=== PATIENT | female | born 1960 | race Caucasian/White ===

== ENCOUNTER 2019-12-28 11:10 | Outpatient (CLI) | payer OTHER, SELFPAY ==
[2019-12-28 11:51] LABS: Add Urine Microscopic? YES; Appearance Urine Cloudy (Clear); Bacteria Urine 2+ /hpf; Bilirubin Urine Negative (Negative); Blood Urine 2+ (Negative); Color Urine Yellow (Yellow); Glucose Urine UA Negative (Negative); Ketones Urine Negative (Negative); Leukocyte Esterase Ur 3+ LEU/UL (NEGATIVE); Mucus Urine Heavy /lpf; Nitrate Urine Positive (Negative); Protein Urine 2+ mg/dL (Negative); RBC Urine >75 /hpf (0-2); Specific Grav Ur 1.018 (1.001-1.035); Urobilinogen Urine Negative mg/dL (<2.0); WBC Clumps Urine Present /HPF; WBC Urine >75 /hpf (0-3)
== END 2019-12-28 11:11 | disposition home or self-care (01) ==
PROVIDERS: PCP Internal Medicine; Visit Provider Internal Medicine Hematology & Oncology
DX: N39.0 Urinary tract infection, site not specified (principal)
CPT/HCPCS: 81001; 87086; 87186

== ENCOUNTER 2020-02-09 13:28 | Outpatient (CLI) | payer OTHER, SELFPAY ==
--- NOTE | ~2020-02-09 | CT_ITS ---
EXAMINATION: CT abdomen pelvis wo con DATE: 02/09/2020 13:52 INDICATION: Microscopic hematuria. Recurrent urinary tract infections. Posterior right abdominal pain . History of endometrial carcinoma; status post hysterectomy in 2010 History of colon cancer, treated with surgery and radiation treatment and chemotherapy. TECHNIQUE: Computed tomography (CT) of the abdomen and pelvis was performed without intravenous contr ast. Automated exposure control and iterative reconstruction technique were employed. Exam dose: 219 .89 mGy-cm total exam DLP. COMPARISON: 06/05/2012 CT abdomen pelvis with IV contrast material FINDINGS: Mild discoid atelectasis or more likely scarring in the left lower lobe. The lung bases are clear of infiltrate or consolidation. Normal heart size. No pericardial or pleural effusion. Hypoattenuating approximately 1.8 x 2.6 cm right hepatic lesion previously measured 10 x 14 mm on 05/25. Density measurement is approximately 13 Hounsfield units. Consider further evaluation with in travenous contrast material CT abdomen examination or MRI examination. No other hepatic space-occupying mass lesion is detected. No bile duct dilatation. The gallbladder is present. No pericholecystic fluid or stranding. No pancreatic mass lesion, calcification or ductal dilatation is evident. Normal splenic size. Normal morphology of the adrenal glands. No renal mass lesion is evident on this limited noncontrast examination. No urinary tract calculus or hydroureteronephrosis. The urinary bladder is moderately distended, appears unremarkable. Normal caliber of the abdominal aorta. Surgical clips are noted in the periaortic and pericaval areas and in the bilateral pelvis. Status post hysterectomy. There is a wide lower ventral anterior abdominal wall hernia containing non strangulated nonobstructe d small bowel. Suture line is noted in the rectosigmoid area. No bowel obstruction, bowel wall thickening or pneumatosis. No intraperitoneal free air. Prominent degenerative disc disease at L5-S1. IMPRESSION: Approximately 1.8 x 2.6 cm right hepatic lesion, increased in size since 06/05/2012; cons ider further evaluation with CT examination with IV contrast material or preferably MRI examination Status post hysterectomy Postoperative change of the rectosigmoid area Lower midline anterior ventral abdominal wall with herniated small bowel, without strangulation or ob struction Reviewed, dictated and finalized at [facility]. Reviewed, dictated and finalized at [facility]. IMPRESSION: Approximately 1.8 x 2.6 cm right hepatic lesion, increased in size since 06/05/2012; consider further evaluation with CT examination with IV contr ast material or preferably MRI examination Status post hysterectomy Postoperative change of the rectosigmoid area Lower midline anterior ventral abdominal wall with herniated small bowel, witho ut strangulation or obstruction
== END 2020-02-09 13:29 | disposition home or self-care (01) ==
LOC: CHSIMG 13:31
PROVIDERS: PCP Internal Medicine; Visit Provider Nurse Practitioner Family
DX: R31.9 Hematuria, unspecified (principal); N20.0 Calculus of kidney; N39.0 Urinary tract infection, site not specified
CPT/HCPCS: 74176

== ENCOUNTER 2020-02-17 07:51 | Outpatient (CLI) | payer OTHER, SELFPAY ==
[2020-02-17 08:31] LABS: Hematocrit 41.3 % (37.0-47.0); Hemoglobin 13.6 g/dL (12.0-15.0); Mean Corpuscular HGB Conc 32.9 g/dl (32-36); Mean Platelet Volume 10.2 fl (7.4-10.4); Platelet Count Result 292 k/mm3 (150-375); Red Blood Count 4.54 M/mm3 (4.2-5.4); Red Cell Distribution Width 12.9 % (11.5-14.5); White Blood Count 5.4 K/mm3 (4.5-10.0)
[2020-02-17 10:59] LABS: Add Urine Microscopic? NO; Appearance Urine Clear (Clear); Bilirubin Urine Negative (Negative); Blood Urine Negative (Negative); Color Urine Yellow (Yellow); Glucose Urine UA Negative (Negative); Ketones Urine Negative (Negative); Leukocyte Esterase Ur Negative LEU/UL (Negative); Nitrate Urine Negative (Negative); Protein Urine Negative (Negative); Specific Grav Ur 1.016 (1.001-1.035); Urobilinogen Urine Negative mg/dL (<2.0)
[2020-02-17 11:12] LABS: LDL Cholesterol Direct 98 mg/dL
[2020-02-17 11:18] LABS: Vitamin D 25 Hydroxy 41.4 ng/mL
[2020-02-17 11:22] LABS: Alanine Aminotransferase 20 U/L (4-35); Albumin Level 4.6 g/dL (3.5-5.1); Alkaline Phosphatase 73 U/L (38-126); Aspartate Amino Transferase 28 U/L (14-36); Bilirubin,Total 0.5 mg/dL (0.2-1.3); Blood Urea Nitrogen 20 mg/dL (7-17); Calcium 9.7 mg/dL (8.4-10.2); Carbon Dioxide 30 mmol/L (22-30); Chloride 103 mmol/L (98-107); Cholesterol 234 mg/dL (0-200); Estimated Glomerular Filt Rate > 60; Glucose 104 mg/dL (65-105); Potassium 4.1 mmol/L (3.4-5.0); Sodium 140 mmol/L (137-145); Triglycerides 75 mg/dL (<150)
[2020-02-17 11:27] LABS: HDL Direct 120 mg/dL
[2020-02-17 11:32] LABS: Carcinoembryonic Antigen 2.9 ng/mL (0.0-3.0)
== END 2020-02-17 07:52 | disposition home or self-care (01) ==
LOC: ANHLAB 07:52
PROVIDERS: PCP Internal Medicine; Visit Provider Internal Medicine Hematology & Oncology
DX: I10 Essential (primary) hypertension (principal); Z85.44 Personal history of malignant neoplasm of other female genital organs; Z85.038 Personal history of other malignant neoplasm of large intestine; N30.00 Acute cystitis without hematuria
CPT/HCPCS: 36415; 80053; 80061; 81003; 82306; 82378; 85027

== ENCOUNTER 2020-04-07 17:55 | Outpatient (CLI) | payer OTHER, SELFPAY ==
[2020-04-07 18:36] LABS: Appearance Urine Clear (Clear); Color Urine Yellow (Yellow); pH Urine 5.5 (5.0-8.0)
[2020-04-07 18:37] LABS: Add Urine Microscopic? YES; Bilirubin Urine Negative (Negative); Blood Urine Negative (Negative); Glucose Urine UA Negative (Negative); Ketones Urine Trace (Negative); Leukocyte Esterase Ur Negative (Negative); Nitrate Urine Negative (Negative); Protein Urine Negative (Negative); Specific Grav Ur >= 1.030 (1.010-1.020); Urobilinogen Urine 0.2 mg/dL (0.2-1.0)
[2020-04-07 18:38] LABS: Bacteria Urine Trace /hpf; RBC Urine 0-2 /hpf (0-2); Squamous Epithelial Cell Urine Rare /hpf (Few)
== END 2020-04-07 17:56 | disposition home or self-care (01) ==
LOC: CHSLAB 17:57
PROVIDERS: PCP Internal Medicine; Visit Provider Internal Medicine
DX: R19.7 Diarrhea, unspecified (principal); N39.0 Urinary tract infection, site not specified
CPT/HCPCS: 81001; 87045; 87046; 87086; 87088; 87177; 87209; 87427

== ENCOUNTER 2020-04-09 11:27 | Outpatient (CLI) | payer OTHER, SELFPAY | END 2020-04-09 11:28 | disposition home or self-care (01) | LOC: CHSLAB 11:30 | PROVIDERS: PCP Internal Medicine; Visit Provider Internal Medicine | DX: R19.7 Diarrhea, unspecified (principal); N39.0 Urinary tract infection, site not specified | CPT/HCPCS: 87324 ==

== ENCOUNTER 2020-06-20 14:38 | Outpatient (CLI) | payer OTHER, SELFPAY ==
--- NOTE | ~2020-06-20 | MR_ITS ---
EXAMINATION: MR abdomen wo/w con DATE: 06/20/2020 16:11 INDICATION: Liver mass. TECHNIQUE: Magnetic resonance imaging (MRI) of the abdomen was performed without and with 14 mL Multi Kayleen intravenous contrast. Sequences included coronal T2-weighted FS FSE, coronal and axial FS FIEST A, axial T2-weighted FSE, coronal LAVA-flex, axial STIR FSE, axial DWI, axial dual-echo T1-weighted F SPGR, and axial LAVA. Postcontrast sequences included coronal LAVA-flex and a time course of axial LA VA. COMPARISON: Abdomen MRI 03/28/2019, CT abdomen and pelvis 02/09/2020 FINDINGS: There is a 2.5 cm cyst in right hepatic lobe. The gallbladder, spleen, pancreas, adrenal glands, and left kidney are normal. There is mild atrophy of right kidney. There are no dilated loops of bowel. T here are no pathologically enlarged lymph nodes. There is no free intraperitoneal fluid. IMPRESSION: 1. Benign cyst in right hepatic lobe. Reviewed, dictated and finalized at location [facility].
[2020-06-20 15:17] LABS: Estimated Glomerular Filt Rate > 60
== END 2020-06-20 14:39 | disposition home or self-care (01) ==
PROVIDERS: PCP Internal Medicine; Visit Provider Internal Medicine
DX: K76.89 Other specified diseases of liver (principal)
CPT/HCPCS: 36415; 74183; A9577

== ENCOUNTER 2020-12-12 13:44 | Outpatient (CLI) | payer OTHER, SELFPAY ==
--- NOTE | ~2020-12-12 | XR_ITS ---
EXAMINATION: XR abdomen obstructive series DATE: 12/12/2020 14:16 INDICATION: Abdominal pain and diarrhea TECHNIQUE: Upright and supine views of the abdomen were obtained. COMPARISON: CT, 02/09/2020 FINDINGS: There are no dilated loops of bowel. No free intraperitoneal gas is identified. Bowel surgi sulma changes are noted in the rectum. There are also changes of pelvic and retroperitoneal lymph node dissection. A large volume of colonic stool is present. The visualized lung bases are clear. There is mild osteoarthritis of the hips. IMPRESSION: 1. Constipation. Reviewed, dictated and finalized at location [facility]. ATOR ERECTOR IMPRESSION: 1. Constipation.
[2020-12-12 14:29] LABS: Basophils Absolute Auto 0.04 K/mm3 (0.00-0.10); Basophils Percent Auto 0.8 % (0.0-1.0); Eosinophils Absolute Auto 0.13 K/mm3 (0.02-0.50); Eosinophils Percent Auto 2.6 % (1.0-6.0); Hematocrit 38.7 % (35.0-49.0); Hemoglobin 12.8 g/dL (12.0-15.0); Immature Granulocyte Absolute 0.01 K/mm3 (0.00-0.00); Immature Granulocyte Percent A 0.2 % (0.0-0.0); Lymphocytes Absolute Auto 1.35 K/mm3 (1.10-4.50); Lymphocytes Percent Auto 27.3 % (18.0-42.0); Mean Corpuscular HGB Conc 33.1 g/dL (32.0-36.0); Mean Corpuscular Hemoglobin 29.7 pg (27.0-31.0); Mean Corpuscular Volume 89.8 fL (78.0-102.0); Mean Platelet Volume 10.4 fl (9.2-11.8); Monocytes Percent Auto 8.1 % (2.0-11.0); Platelet Count Result 228 K/mm3 (150-420); Red Blood Count 4.31 M/mm3 (4.20-5.40); Red Cell Distribution Width 12.2 % (11.6-14.4)
[2020-12-12 14:48] LABS: SARS-CoV-2 Ag Negative (Negative)
[2020-12-12 15:30] LABS: Alanine Aminotransferase 7 U/L (14-59); Albumin Level 3.9 g/dL (3.4-5.0); Alkaline Phosphatase 73 U/L (46-116); Amylase 43 U/L (25-115); Anion Gap 10 mmol/L (8-16); Aspartate Amino Transferase 14 U/L (15-37); Bilirubin,Total 0.5 mg/dL (0.00-1.00); Blood Urea Nitrogen 16 mg/dL (7-18); Calcium 8.7 mg/dL (8.5-10.1); Carbon Dioxide 30 mmol/L (21-32); Chloride 102 mmol/L (98-108); Estimated Glomerular Filt Rate > 60; Free T4 Free Thyroxine 1.18 ng/dL (0.76-1.46); Glucose 108 mg/dL (70-99); Lipase 75 U/L (73-393); Osmolality Calculated 296 mOsm/kg (285-295); Potassium 3.8 mmol/L (3.5-5.1); Sodium 142 mmol/L (136-145); Thyroid Stimulating Hormone 1.24 uIU/mL (0.36-3.74); Total Protein 6.9 g/dL (6.4-8.2)
[2020-12-13 18:38] LABS: SARS-CoV-2 RNA PCR Negative
== END 2020-12-12 13:45 | disposition home or self-care (01) ==
PROVIDERS: PCP Internal Medicine; Visit Provider Nurse Practitioner Family
DX: R10.9 Unspecified abdominal pain (principal); R19.7 Diarrhea, unspecified; Z20.822 Contact with and (suspected) exposure to COVID-19
CPT/HCPCS: 36415; 74019; 80053; 82150; 83690; 84439; 84443; 85025; 87426; C9803; U0003; U0005

== ENCOUNTER → 2021-03-03 00:41 | Outpatient (CLI) | payer OTHER, SELFPAY ==
[2021-03-03 19:49] LABS: SARS-CoV-2 RNA PCR Negative
== END ==
PROVIDERS: PCP Internal Medicine; Visit Provider Internal Medicine Gastroenterology
DX: Z01.812 Encounter for preprocedural laboratory examination (principal); Z20.822 Contact with and (suspected) exposure to COVID-19
CPT/HCPCS: C9803; U0003; U0005

== ENCOUNTER 2021-03-06 01:55 | Day surgery (SDC) | payer OTHER, SELFPAY ==
[2021-02-23 14:35] VITALS: BMI 26.6
[2021-03-06 09:58] VITALS: BP 137/75; PULSE 91; RESP 16; TEMP 36.6; O2SAT 100; BMI 26.0
[2021-03-06] MEDS: LACTATED RINGERS 1,000 ML 150 ML IV CONT (10:08)
--- NOTE | 2021-03-06 10:18 | WPDANESEPPF ---
Anes - Initial Pre Proc Eval Procedure: Operation Date: 03/06/21 11:15 Proposed Procedures p Esophagogastroduodenoscopy & Colonoscopy - Gianni Garcia MD Date/Time: 03/06/21 10:18 Surgeon: Gianni Garcia MD Pre Op Diagnosis: diarrhea Patient Data Age: 60 Gender: F Height: 5 ft 4 in Weight: 68.8 kg Last Vital Signs Temp 98 F 03/06/21 09:58 Pulse 91 03/06/21 09:58 Resp 16 03/06/21 09:58 BP 137/75 03/06/21 09:58 Pulse Ox 100 03/06/21 09:58 Allergies Allergy/AdvReac Type Severity Reaction Status Date / Time codeine Allergy Unknown Unknown Verified 12/28/20 13:38 Home Medications Medication Instructions Recorded Confirmed Type aspirin 81 mg tablet,delayed 81 mg PO DAILY 12/28/20 02/23/21 History release cholecalciferol (vitamin D3) 50 50 mcg PO DAILY 12/28/20 02/23/21 History mcg (2,000 unit) capsule lisinopril 10 0.5 tablet PO DAILY 12/28/20 02/23/21 History mg-hydrochlorothiazide 12.5 mg tablet eluxadoline 75 mg tablet 75 mg PO BID #60 tablet 02/23/21 02/23/21 Rx Patient hx anesthesia problems: none Family hx anesthesia problems: none PMFSH Past Medical History Medical History (Updated 12/28/20 @ 14:04 by Gianni Garcia MD) Colon cancer Defecation urgency Diarrhea Endometrial cancer Hypertension Irritable bowel syndrome with diarrhea Surgical History Surgical History History of colon resection Family History Family History (Updated 12/28/20 @ 13:42 by Angie Sibley CMA) Father Lung cancer Mother Carcinoma of colon Sibling Carcinoma of colon Sibling Carcinoma of colon Other Family history of lung disease Family history of malignant neoplasm Hypertension Social History Social History Smoking status: Never smoker Alcohol intake: current Drinks per week: 1 Substance use: never Substance use type: does not use Living arrangements: with family Spiritual care concerns: No Anes - Eval Final PreProcedure Day of Procedure 03/06/21 10:18 Patient weight: normal Heart: regular rate and rhythm Lungs: clear to auscultation Airway: Mallampati scale class II Neurological: alert and oriented Last oral intake: >/= 8 hours ASA classification: III Emergent: no Anesthetic plan: proceed Anesthesia type and monitoring: general GIVS and standard monitoring Informed Consent: The patient's anesthetic plan and its attendant risks and benefits were discussed with the patient/family/POA. Questions were solicited and answers provided to the satisfaction of the patient/family/POA.
--- NOTE | 2021-03-06 10:28 | PM.HPGS ---
History of Present Illness History of Present Illness Consent: Risks, benefits, and alternatives have been discussed and questions answered. Patient agrees to proceed with procedure. Chief complaint: diarrhea Narrative: Sixto Gallardo is a 60 year old female colorectal cancer in 1995 treated with surgery, XRT and chemo then in early 1999' had endometrial cancer treated with total hysterectomy, complicated with ureteral disruption and required another surgery. Her mother, brother and sister have been diagnosed with colon cancer and both siblings tested for Mckenzie syndrome (she has not been tested yet). She is here for egd and colonoscopy (also diarrhea since had colon treatment), last colonoscopy 3 years ago. Review of Systems Constitutional: Constitutional: Denies headache(s) and Denies weakness Eyes: Eyes: Denies blurry vision ENT: Reports Normal hearing present, Denies headache(s) and Denies neck pain Cardiovascular: Cardiovascular: Denies chest pain and Denies dyspnea Respiratory: Respiratory: Denies dyspnea Gastrointestinal: Gastrointestinal: Reports no additional gastrointestinal complaints Genitourinary: Genitourinary: Denies dysuria Musculoskeletal: Musculoskeletal: Denies neck pain Integumentary/Breasts: Skin/Breast: Denies dry skin Neurologic: Reports Normal hearing present, Denies headache(s) and Denies weakness Psychiatric: Psychiatric: Denies anxiety Endocrine: Endocrine: Denies change in body appearance Hematologic/Lymphatic: Hematologic/Lymphatic: Denies easy bleeding Allergic/Immunologic: Allergic/Immunologic: Denies urticaria PMFSH Past Medical History Medical History (Updated 03/06/21 @ 10:29 by Gianni Garcia MD) Colon cancer Defecation urgency Diarrhea Endometrial cancer Hypertension Irritable bowel syndrome with diarrhea Surgical History Surgical History History of colon resection Family History Family History (Updated 12/28/20 @ 13:42 by Angie Sibley CMA) Father Lung cancer Mother Carcinoma of colon Sibling Carcinoma of colon Sibling Carcinoma of colon Other Family history of lung disease Family history of malignant neoplasm Hypertension Social History Social History Smoking status: Never smoker Alcohol intake: current Drinks per week: 1 Substance use: never Substance use type: does not use Living arrangements: with family Spiritual care concerns: No Meds Home Medications and Allergies Home Medications Medication Instructions Recorded Confirmed Type aspirin 81 mg tablet,delayed 81 mg PO DAILY 12/28/20 02/23/21 History release cholecalciferol (vitamin D3) 50 50 mcg PO DAILY 12/28/20 02/23/21 History mcg (2,000 unit) capsule lisinopril 10 0.5 tablet PO DAILY 12/28/20 02/23/21 History mg-hydrochlorothiazide 12.5 mg tablet eluxadoline 75 mg tablet 75 mg PO BID #60 tablet 02/23/21 02/23/21 Rx Allergies Allergy/AdvReac Type Severity Reaction Status Date / Time codeine Allergy Unknown Unknown Verified 12/28/20 13:38 Vital Signs Vital Signs - 24 hr 03/06/21 09:58 Temperature 98 F Pulse Rate 91 Respiratory Rate 16 Blood Pressure 137/75 Pulse Oximetry 100 Exam Const: General: comfortable and no acute distress HENMT: General nose exam: Normal nares present Eyes: General: appearance normal, both eyes and all related structures Neck: Neck: no JVD Resp: Auscultation: clear to auscultation bilaterally Cardio: Rate: regular rate Rhythm: regular rhythm GI: Inspection: non-distended GI Palp: Yes Soft to palpation Skin: General skin exam: normal color Neuro: General: gait normal Speech: normal speech Extrem: General: normal to inspection Psych: Mental Status: mental status grossly normal Assessment and Plan Assessment and plan (1) Diarrhea: Code(s): R19.7 - Diarrhea, unspecified Status: A
[2021-03-06] MEDS: BENZOCAINE (*SP) 60 ML SPRAY CAN (HURRICAINE) 1 SPRAY MUCOUS MEM (10:30)
[2021-03-06 10:59] VITALS: BP 118/58; PULSE 66; RESP 16; O2SAT 100
[2021-03-06 11:09] VITALS: BP 124/71; PULSE 62; RESP 13; O2SAT 100
[2021-03-06 11:19] VITALS: BP 133/63; PULSE 62; RESP 21; O2SAT 100
== END 2021-03-06 11:29 | disposition home or self-care (01) ==
PROVIDERS: PCP Internal Medicine; Visit Provider Internal Medicine Gastroenterology
PROC: 0DJ08ZZ Inspection of Upper Intestinal Tract, Via Natural or Artificial Opening Endoscopic (ICD-10-PCS; CPT 43235; principal; 2021-03-06 11:15)
DX: K58.0 Irritable bowel syndrome with diarrhea (principal); Z85.038 Personal history of other malignant neoplasm of large intestine; Z80.0 Family history of malignant neoplasm of digestive organs; Z85.42 Personal history of malignant neoplasm of other parts of uterus; Z92.21 Personal history of antineoplastic chemotherapy; Z92.3 Personal history of irradiation; Z98.0 Intestinal bypass and anastomosis status; Z90.49 Acquired absence of other specified parts of digestive tract; K29.50 Unspecified chronic gastritis without bleeding; I10 Essential (primary) hypertension; Z79.82 Long term (current) use of aspirin
CPT/HCPCS: 45380; 43239; 88305; J2704; J7120

== ENCOUNTER 2021-04-29 19:57 | Emergency (ER) | payer OTHER, SELFPAY ==
--- NOTE | ~2021-04-29 | CT_ITS ---
EXAMINATION: CT abdomen pelvis w con EXAM DATE: 04/29/2021 22:03 INDICATION: Abdominal pain. Colon and endometrial cancer. TECHNIQUE: Spiral CT of the abdomen and pelvis was performed following intravenous injection of 100 m L Omnipaque 350. Axial, coronal and sagittal images of the abdomen and pelvis were reviewed. The do se-length product (DLP) for this examination was 343.26 mGy-cm. The exposure was tailored according to patient size (auto mA exposure control), and iterative reconstruction (ASIR) was used as additiona l dose reduction technique. Comparison is made to prior examination from 02/09/2020. FINDINGS: Right liver lobe cyst measuring 2.5 cm. The liver, spleen, adrenal glands and pancreas are otherwise unremarkable. Gallbladder is unremarkable. No biliary obstruction. Portal and splenic v eins are patent. Kidneys enhance symmetrically. There is no hydronephrosis. Multiple regions of rig ht renal cortical scarring, with bifurcated renal collecting system. The uterus is not identified an d has likely been surgically resected. The bladder is unremarkable. There is no retroperitoneal or pelvic lymphadenopathy. Retroperitoneal and pelvic surgical clips, pelvic and retroperitoneal lymph n ode dissection. The appendix is not positively visualized. There is no pericecal inflammatory change to suggest appe ndicitis. Rectosigmoid anastomosis site intact. There is supraumbilical wide mouth herniation with s ome small bowel loops protruding inside, and mild dilation of the small bowel loops without transitio n point. Ileus or low-grade small bowel obstruction. There is expected amount of colonic stool. No free intraperitoneal gas. The heart is normal in size. There are no pericardial or pleural effusi ons. The lung bases are unremarkable. There are no osteoblastic or osteolytic lesions identified. IMPRESSION: 1. Mildly dilated small bowel bowel protruding into [place] supraumbilical hernia, without transit ion point. Probably ileus or possibly low-grade partial small bowel obstruction. 2. Right renal cortical scarring.. 3. Surgical changes. Reviewed, dictated and finalized at location [facility]. IMPRESSION: 1. Mildly dilated small bowel bowel protruding into [place] supraumbilical h ernia, without transition point. Probably ileus or possibly low-grade partial s mall bowel obstruction. 2. Right renal cortical scarring.. 3. Surgical changes.
[2021-04-29 20:20] VITALS: BP 150/86; PULSE 95; RESP 18; TEMP 36.3; O2SAT 99
--- NOTE | 2021-04-29 20:31 | ECG_ITS ---
Measurements Intervals [place] Rate: 82 P: 68 WV: 135 QRS: 49 QRSD: 91 T: 9 QT: 369 QTc: 432 Interpretive Statements SINUS RHYTHM NONSPECIFIC ST & T-WAVE ABNORMALITY- ANT/INF LEADS BASELINE ARTIFACT- I, II, III, AVR, AVL, AVF, V4-V5 BORDERLINE ECG Electronically Signed On 05-01-2021 7:28:45 CDT by Modesto Ordaz D.O.
[2021-04-29 20:48] LABS: Basophils Absolute Auto 0.03 K/mm3 (0.00-0.10); Basophils Percent Auto 0.3 % (0.0-1.0); Eosinophils Absolute Auto 0.01 K/mm3 (0.02-0.50); Eosinophils Percent Auto 0.1 % (1.0-6.0); Hematocrit 45.2 % (35.0-49.0); Immature Granulocyte Absolute 0.03 K/mm3 (0.00-0.00); Immature Granulocyte Percent A 0.3 % (0.0-0.0); Lymphocytes Absolute Auto 0.86 K/mm3 (1.10-4.50); Lymphocytes Percent Auto 8.7 % (18.0-42.0); Mean Corpuscular HGB Conc 33.2 g/dL (32.0-36.0); Mean Corpuscular Hemoglobin 29.4 pg (27.0-31.0); Mean Corpuscular Volume 88.5 fL (78.0-102.0); Monocytes Absolute Auto 0.34 K/mm3 (0.10-0.90); Monocytes Percent Auto 3.4 % (2.0-11.0); Neutrophils Absolute Auto 8.6 K/mm3 (1.7-7.2); Neutrophils Percent Auto 87.2 % (50.0-70.0); Platelet Count Result 247 K/mm3 (150-420); Red Blood Count 5.11 M/mm3 (4.20-5.40); Red Cell Distribution Width 12.5 % (11.6-14.4); White Blood Count 9.9 K/mm3 (4.8-10.8)
[2021-04-29] MEDS: SODIUM CHLORIDE 0.9% IV 1,000 ML 999 ML IV CONT (21:00)
[2021-04-29 21:02] LABS: Partial Thromboplastin Time 22.6 SEC (23.90-30.70); Prothrombin Time 10.4 Seconds (9.50-12.10)
[2021-04-29] MEDS: KETOROLAC 30 MG/ML VIAL (*BKC) IV PUSH (21:04)
[2021-04-29] MEDS: ONDANSETRON INJ 4 MG/2 ML VIAL IV PUSH (21:04)
[2021-04-29 21:05] LABS: Alanine Aminotransferase 6 U/L (14-59); Albumin Level 4.3 g/dL (3.4-5.0); Alkaline Phosphatase 93 U/L (46-116); Anion Gap 9 mmol/L (8-16); Aspartate Amino Transferase 16 U/L (15-37); Bilirubin,Total 0.7 mg/dL (0.00-1.00); Blood Urea Nitrogen 22 mg/dL (7-18); Calcium 9.3 mg/dL (8.5-10.1); Carbon Dioxide 30 mmol/L (21-32); Chloride 100 mmol/L (98-108); Estimated CRCL calculation 46 ml/min; Estimated Glomerular Filt Rate 57; Glucose 164 mg/dL (70-99); Lipase 69 U/L (73-393); Osmolality Calculated 295 mOsm/kg (285-295); Potassium 4.2 mmol/L (3.5-5.1); Sodium 139 mmol/L (136-145); Total Protein 7.4 g/dL (6.4-8.2); Troponin I 6.1 ng/L (0.00-60.4)
[2021-04-29 21:08] LABS: Lactic Acid Reflex 0.9 mmol/L (0.4-2.0)
[2021-04-29 22:25] LABS: Add Urine Microscopic? YES; Appearance Urine Clear (Clear); Bilirubin Urine Negative (Negative); Blood Urine Negative (Negative); Color Urine Yellow (Yellow); Glucose Urine UA Negative (Negative); Ketones Urine 1+ (Negative); Leukocyte Esterase Ur Negative (Negative); Nitrate Urine Negative (Negative); Protein Urine Negative (Negative); Specific Grav Ur <= 1.005 (1.010-1.020); Urobilinogen Urine 0.2 mg/dL (0.2-1.0)
[2021-04-29 22:32] LABS: Bacteria Urine Trace /hpf; RBC Urine 0-2 /hpf (0-2); Squamous Epithelial Cell Urine Few /hpf (Few); WBC Urine 0-3 /hpf (0-3)
--- NOTE | 2021-04-29 22:56 | ED.ABDPAIN ---
HPI - Abdominal Pain General Chief Complaint: Abdominal Pain Stated Complaint: Severe abdominal Pain Source: patient Mode of arrival: ambulatory Limitations: no limitations History of Present Illness HPI narrative: this is a 60-year-old female with a chief complaint abdominal pain diffuse has a history of surgeries in the 4 colon cancer, where she had surgery radiation and chemo of back in around the , history of endometrial cancer history of total hysterectomy after tonight. Patient pain described as aching has history of chronic constipation with some nausea no vomiting no flank pain no abdominal pain no chest pain no fever chills. MD elicited complaint: abdominal pain Pertinent past history: constipation Onset (ago): hour(s) Pain Consistency: intermittent Location: diffuse Severity: moderate Pain scale (0-10): 6 Quality: aching Radiation: none Migration to: no migration Exacerbating factors: nothing Relieving factors: nothing Associated symptoms: nausea Related Data Home Medications Medication Instructions Recorded Confirmed cholecalciferol (vitamin D3) 50 50 mcg PO DAILY 12/28/20 04/29/21 mcg (2,000 unit) capsule lisinopril 10 0.5 tablet PO DAILY 12/28/20 04/29/21 mg-hydrochlorothiazide 12.5 mg tablet multivitamin [Daily Multivitamin] 1 tablet PO DAILY 04/29/21 04/29/21 Allergies Allergy/AdvReac Type Severity Reaction Status Date / Time codeine Allergy Unknown Unknown Verified 04/27/21 15:48 Review of Systems Review of Systems: All systems reviewed & are unremarkable except as noted in HPI and below PMFSH Past Medical History Medical History Colon cancer Defecation urgency Diarrhea Endometrial cancer Hypertension Irritable bowel syndrome with diarrhea Surgical History Surgical History History of colon resection Family History Family History Father Lung cancer Mother Carcinoma of colon Sibling Carcinoma of colon Sibling Carcinoma of colon Other Family history of lung disease Family history of malignant neoplasm Hypertension Social History Social History Smoking status: Never smoker Alcohol intake: current Drinks per week: 1 Substance use: never Substance use type: does not use Spiritual care concerns: No Exam Const: General: no acute distress Orientation/consciousness: patient oriented x3 HENMT: Head: normal to inspection Eyes: Conjunctivae: conjunctivae normal Pupils: Equal, round and reactive pupils present Neck: Neck: normal visual inspection, no lymphadenopathy and no meningeal signs Chest: Chest palpation & inspection: normal inspection of the chest Resp: Effort & Inspection: normal respiratory effort Auscultation: clear to auscultation bilaterally Cardio: Rate: regular rate Rhythm: regular rhythm GI: GI Palp: Yes Soft to palpation and Yes Tenderness to palpation present (GI) Percussion: Yes normal to percussion : General: Yes no CVA tenderness Urinary Catheter: Urinary Catheter: patent and draining Skin: General skin exam: normal color Rashes: no rashes Neuro: General: patient oriented x3, moves all extremities, no meningeal signs and no focal motor deficits Extrem: General: normal to inspection and no pedal edema Psych: Appearance: grossly normal Mental Status: mental status grossly normal Course Course Emergency Course: Patient received IV Toradol and Zofran patient states that her pain has improved, labs reviewed with patient including urinalysis. CT scan reviewed with patient showing a partial small-bowel obstruction with early high-grade distal small-bowel obstruction versus an ileus, and talk to hospitalist at [facility] which will accept the patient. Vital Signs Vital signs: Vital Signs T
--- NOTE | 2021-04-29 23:07 | PC.NURSE ---
Pt. resting, reports received and ERP Dr Beasley speaking c pt. re:tests and CT results. POC for transfer to [facility] per pt. request. VSS.
--- NOTE | 2021-04-29 23:11 | PC.NURSE ---
Call placed to [facility], spoke to kinga Vivas. will call surgeon and await call back.
--- NOTE | 2021-04-29 23:33 | PC.NURSE ---
Pt resting comfortably at this time, reports pain is minimal and doesn't want NG placed unless she is sedated. Pt has no vomiting, VSS. Awaiting call back from [facility].
--- NOTE | 2021-04-29 23:36 | PC.NURSE ---
Call back from hospitalist at [facility]. Accepting for transfer. Will await call back for report.
[2021-04-29 23:43] VITALS: BP 125/81; PULSE 89; RESP 18; O2SAT 98
[2021-04-30 00:03] VITALS: BP 136/81; PULSE 80; RESP 18; TEMP 36.6; O2SAT 98
[2021-04-30] MEDS: HYDROmorphone HCL INJ (*CRX) 2 MG/ML VIAL 1 MG IV PUSH (00:24)
--- NOTE | 2021-04-30 00:31 | PC.NURSE ---
Report to [facility], pt. loaded s difficulty for transfer to [facility].
== END 2021-04-30 00:32 | disposition short-term general hospital (02) ==
PROVIDERS: Emergency Provider Emergency Medicine; PCP Internal Medicine
DX: K56.609 Unspecified intestinal obstruction, unspecified as to partial versus complete obstruction (principal)
CPT/HCPCS: 36415; 74177; 80053; 81001; 83605; 83690; 84484; 85025; 85610; 85730; 93005; 96361; 96374; 96375; 99285; J1170; J1885; J2405; J7030; Q9967

== ENCOUNTER 2021-04-30 02:37 | Inpatient (IN) | payer OTHER, SELFPAY ==
[2021-04-30] VITALS (11 sets, daily range): BP systolic 130–155; BP diastolic 65–73; PULSE 66–95; RESP 16–18; TEMP 36.1–37.1; O2SAT 98–100; BMI 26.9
--- NOTE | ~2021-04-30 | XR_ITS ---
EXAMINATION: XR abdomen obstructive series EXAM DATE: 04/30/2021 05:34 INDICATION: Small bowel obstruction. TECHNIQUE: Frontal upright projection of the upper abdomen, frontal projection of the lower abdomen f or interpretation. Correlation is made to CT abdomen pelvis 04/29/2021. FINDINGS: There is moderate amount of colonic stool and gas. No small bowel dilation, nonobstructiv e bowel gas pattern. There are no suspicious calcifications identified. There is no organomegaly suspected. The bones are unremarkable. Pelvic and retroperitoneal surgical clips. Partially duplicat ed, bifid right renal collecting system There is no free intraperitoneal air. The lung bases are lizeth ar. IMPRESSION: Unremarkable abdomen x-ray exam. Reviewed, dictated and finalized at location A.
--- NOTE | 2021-04-30 01:00 | ADMGEN ---
This patient, Sixto Gallardo, was admitted to IMU Room 213-01. Patient/family oriented to hospital policies and general routines including ID bracelet, bed and alarms, visiting hours, pain management, procedures, bathroom and other care routines, personal items, smoking policy, room service/diet, and visiting hours. Information on how to activate the Rapid Response Team has been discussed. Patient/Family are encouraged to report perceived risks to care and to ask questions if they do not understand what they are told or what they should do.
--- NOTE | 2021-04-30 02:20 | PM.IMHP ---
H&P: HPI History of Present Illness Date/Time: 04/30/21 02:20 Chief Complaint: abdominal pain Narrative: 60 yo female who present with abdominal pain, nausea, vomitign that started all of sudden in huang afternoon yseterday. the pain was severe and was in the middle of his abdomen from upper to lower area. she had a larger emesis with it, felt a little better with it but did not go away. she then comes to the ED for evluation. she had CT [facility] showed midlly dialted adn fluid filled loops fo small bowel with air fluid levls within the lwoer abdoen measurign up to 2.7 cm in diameter without a discrete transition point visualized. there is a small amount of interloop fluid. multple dilated small bowel loops extend into a wide mouth ventral abdominal wall hernia. stool is notably present throughout the colon. no peneum=atosis or portal veous gas. finding may represent a partial versus early high grade distal small bowel obstruction versus ileus. She rpoerts she has a histor yof diastasis recti in her lower abdominal wall due to her previous surery. she had hx of colon cancer s/p surgery, radiatio nadn chemoterhapy in 1995, futher hx of endometrical cancer s/p hysterctomy. she recieved dilaudid in the ED. she report she feel good and no pain reported currently. she deneis any nasuea either. no fever, chills, sob, chest pain. martín p in olh: wbc 9.9, hb 15, plt 247, na 139, k 4.2, cl 100, HCO3 30, BUN 22, Cr 0.99, Glu 164, lipase 69, lft normal inr 1. ptt 22.6 lactic acid: 0.9 urinalysis negative EKG: with sinus rhythm, non specific st t chagnes. Review of Systems Review of Systems: Narrative: - CONSTITUTIONAL: Denies weight loss, fever and chills. - HEENT: Denies changes in vision and hearing - RESPIRATORY: Denies SOB and cough. - CV: Denies palpitations and CP. - GI: reports abdominal pain, nausea, vomiting and denies diarrhea. - : Denies dysuria and urinary frequency. - MSK: Denies myalgia and joint pain. - SKIN: Denies rash and pruritus. - NEUROLOGICAL: Denies headache and syncope. - PSYCHIATRIC: Denies recent changes in mood. Denies anxiety and depression. All systems reviewed & are unremarkable except as noted in HPI and below PMFSH Past Medical History Medical History Colon cancer Defecation urgency Diarrhea Endometrial cancer Hypertension Irritable bowel syndrome with diarrhea Surgical History Surgical History History of colon resection Family History Family History Father Lung cancer Mother Carcinoma of colon Sibling Carcinoma of colon Sibling Carcinoma of colon Other Family history of lung disease Family history of malignant neoplasm Hypertension Social History Social History Smoking status: Never smoker Alcohol intake: never Drinks per week: 1 Substance use: never Substance use type: does not use Spiritual care concerns: No Meds Home Medications and Allergies Home Medications Medication Instructions Recorded Confirmed Type cholecalciferol (vitamin D3) 50 2,000 mcg PO DAILY 12/28/20 04/30/21 History mcg (2,000 unit) capsule lisinopril 10 0.5 tablet PO DAILY 12/28/20 04/30/21 History mg-hydrochlorothiazide 12.5 mg tablet multivitamin [Daily Multivitamin] 1 tablet PO DAILY 04/29/21 04/30/21 History Allergies Allergy/AdvReac Type Severity Reaction Status Date / Time codeine Allergy Unknown Unknown Verified 04/27/21 15:48 Vital Signs Vital Signs - 24 hr 04/30/21 01:05 04/30/21 01:23 Temperature 97.5 F L 98.8 F Pulse Rate 85 79 Respiratory Rate 16 18 Blood Pressure 141/67 H 142/73 H Pulse Oximetry 98 100 Exam Narrative: Exam Narrative: GENERAL: The patient is well developed, not in acute distress HEENT: No
[2021-04-30 05:38] LABS: Basophils Percent Auto 0.3 % (0.2-1.2); Eosinophils Percent Auto 0.3 % (0-4.4); Hematocrit 37.8 % (37.0-47.0); Hemoglobin 12.5 g/dL (12.0-15.0); Immature Granulocyte Absolute 0.02 K/mm3 (0.00-0.031); Immature Granulocyte Percent A 0.3 % (0-0.5); Lymphocytes Absolute Auto 1.01 K/mm3 (0.9-3.2); Lymphocytes Percent Auto 14.2 % (18.3-44.2); Mean Corpuscular HGB Conc 33.1 g/dl (32-36); Mean Corpuscular Hemoglobin 29.5 pg (26-34); Mean Corpuscular Volume 89.2 fl (80-100); Mean Platelet Volume 11.5 fl (7.4-10.4); Monocytes Absolute Auto 0.6 K/mm3 (0.1-0.6); Monocytes Percent Auto 8.8 % (2.6-8.5); Neutrophils Absolute Auto 5.4 K/mm3 (1.3-6.7); Neutrophils Percent Auto 76.1 % (45.5-73.1); Platelet Count Result 217 k/mm3 (150-375); Red Blood Count 4.24 M/mm3 (4.2-5.4); Red Cell Distribution Width 12.8 % (11.5-14.5); White Blood Count 7.1 K/mm3 (4.5-10.0)
[2021-04-30 05:47] LABS: Alanine Aminotransferase 16 U/L (4-35); Albumin Level 3.8 g/dL (3.5-5.1); Alkaline Phosphatase 58 U/L (38-126); Anion Gap 4 mmol/L (8-16); Aspartate Amino Transferase 27 U/L (14-36); Bilirubin,Total 0.6 mg/dL (0.2-1.3); Blood Urea Nitrogen 26 mg/dL (7-17); Calcium 8.9 mg/dL (8.4-10.2); Carbon Dioxide 29 mmol/L (22-30); Chloride 107 mmol/L (98-107); Estimated CRCL calculation 56 ml/min; Estimated Glomerular Filt Rate > 60; Glucose 107 mg/dL (65-105); Magnesium 2.2 mg/dL (1.6-2.3); Potassium 4.5 mmol/L (3.4-5.0); Sodium 140 mmol/L (137-145)
--- NOTE | 2021-04-30 12:38 | PM.CNGS ---
Assessment and Plan Assessment and plan (1) Partial small bowel obstruction: Code(s): K56.600 - Partial intestinal obstruction, unspecified as to cause Status: Acute Assessment and Plan: I have reviewed the CT and discuss these findings with the patient. She has a large incisional hernia measuring 10 cm vertically by 6 cm wide. On the CT this appeared to be containing small bowel and was likely causing a partial obstruction, but this appears to be reduced at this point and she no longer has any obstructive findings. The patient describes other prior episodes similar to this in the past. She may be having intermittent partial obstructions due to incarceration of this hernia. She also has some chronic bowel issues related to having a low anterior resection. Her abdominal x-ray this morning shows a nonobstructive bowel gas pattern. Will start her on a clear liquid diet and allow advancement as tolerated. I discussed with the patient that I have repair of this hernia will likely be very extensive and possibly require a large open repair with component separation. Since she no longer appears to be obstructed from this, this would be something that would be planned more electively in the future. It may benefit to review her prior operative reports as well. Discussed risks of recurrent incarceration and monitoring for any of the symptoms. (2) Incisional hernia with bowel obstruction: Code(s): K43.0 - Incisional hernia with obstruction, without gangrene Status: Acute (3) BMI 26.0-26.9,adult: Code(s): Z68.26 - Body mass index [BMI] 26.0-26.9, adult Status: Acute History of Present Illness Consult details Consult date: 04/30/21 Reason for consult: other (Small-bowel obstruction) Requesting physician: Alec Beasley MD Narrative: this is a 60-year-old woman who was transferred from [place] [facility] overnight with evidence of a small-bowel obstruction. She states that she began experiencing abdominal pain for yesterday. The pain became more severe throughout the day and eventually brought her to the emergency department. She has had minor bouts like this in the past but has avoided needing to come to the emergency department. Usually they resolve with time on their own. She does have an extensive surgical history and has a lower abdominal hernia that she has known about the past. She does notice swelling in this area at time that accompanies the abdominal pain and diarrhea. She has never sought surgical evaluation for repair of this the past. She has a history of colon cancer and has had a low anterior resection as well as bladder/Ureter repair and hysterectomy. since being transferred from [place], her pain has resolved and she is passing flatus. She has not had a bowel movement yet. No NG tube was placed in [place]. Review of Systems Review of Systems: All systems reviewed & are unremarkable except as noted in HPI and below Constitutional: Constitutional: Denies chills and Denies fever(s) Gastrointestinal: Gastrointestinal: Reports as per HPI, Reports change in stool character and Reports loose stools PMFSH Past Medical History Medical History (Updated 04/30/21 @ 12:48 by Jorge Turcios DO) Colon cancer Defecation urgency Diarrhea Endometrial cancer Hypertension Irritable bowel syndrome with diarrhea Surgical History Surgical History (Updated 04/30/21 @ 12:43 by Jorge Turcios DO) History of bladder surgery History of colon resection History of hysterectomy History of ureter repair Family History Family History Father Lung cancer Mother Carcinoma of colon Sibling Carcinoma of colon Sibling Carcinoma of colon Other Family history of lung disease Family history of malignant neoplasm Hypertension Social History Social History Sm
--- NOTE | 2021-04-30 14:04 | PM.DS ---
DS: Admitting Diagnosis Admitting Diagnosis Admitting Diagnosis: Bowel obstruction DS: Discharge Diagnosis Discharge Diagnosis (1) SBO (small bowel obstruction): Code(s): K56.609 - Unspecified intestinal obstruction, unspecified as to partial versus complete obstruction Status: Acute (2) Colon cancer: Code(s): C18.9 - Malignant neoplasm of colon, unspecified Status: Acute (3) Endometrial cancer: Code(s): C54.1 - Malignant neoplasm of endometrium Status: Acute (4) Irritable bowel syndrome with diarrhea: Code(s): K58.0 - Irritable bowel syndrome with diarrhea Status: Acute (5) Ventral hernia with obstruction, without gangrene: Code(s): K43.6 - Other and unspecified ventral hernia with obstruction, without gangrene Status: Acute DS: Summary Hospital Course Hospital Course: Patient is a 60 year old female with a past medical history of colon cancer, diarrhea, endometrial cancer, hypertension who presented to [facility] originally for nausea vomiting and severe abdominal pain. Patient was then transferred to [place] for further evaluation and possible emergent surgery. According the CT which was done at [place] there was the large incisional hernia measuring 10 x 6 that look like it might have bowel in it causing it to be strangulated. Patient was evaluated by a Dr. Turcios who reviewed her x-rays and repeated abdominal x-ray this morning which showed no obstruction at this time. Patient stated that she has is quite often and that it often resolves itself. She also stated that normally she lays down and the pain just goes away. Patient also stated that she always has liquidy bowel movements and and she went over all of the risk factors that could is made all of her bowel obstruction possible which nothing unusual is identified. Currently the patient is in IMU she is stable with no pain she was able to tolerate a clear liquid tray. Patient stated that she was ready to go home which was okay with Dr. Turcios. Patient currently denies chest pain, shortness of breath, nausea vomiting, abdominal pain, constipation, diarrhea, urination dysfunction, lightheadedness, weakness, dizziness, numbness and tingling, syncope or falls. Patient did state that she does have a slight headache which she said is not unusual for her. Status at Discharge Functional status at discharge: independent ambulation Overall status at discharge: patient is back to baseline Time Spent with Patient Time attestation: Total time spent providing and/or coordinating discharge services: Time spent: Less than 30 minutes Exam Const: General: cooperative, healthy appearing, comfortable, no acute distress, well developed, alert and awake; No in distress Nutritional Appearance: well nourished Orientation/consciousness: patient oriented x3 Limitations: no limitations HENMT: Head: normal to inspection Ears: hearing grossly normal bilaterally General nose exam: Normal external nose present and Normal nasal mucous membranes and turbinates present Face and sinus: normal facial exam Mouth: Yes Normal oral and palatal mucosa present, Yes lip normal and Yes tongue normal Teeth and gingiva: abnormal tooth and associated gingiva and poor dentition Eyes: General: appearance normal, both eyes and all related structures Pupils: Equal, round and reactive pupils present EOM: EOMs intact bilaterally Neck: Neck: normal visual inspection, full ROM, trachea midline and supple Chest: Chest palpation & inspection: normal inspection of the chest Resp: Effort & Inspection: normal respiratory effort and able to speak in complete sentences Auscultation: clear to auscultation bilaterally Cardio: Jugular venous distension: no JVD Rate: regular rate Rhythm: regular rhythm Heart sounds: S1 normal heart sound present and S2 normal heart sound present Peripheral pulses: Peripheral pulses 2+ throughout GI: Inspection: normal to inspec
== END 2021-04-30 14:44 | disposition home or self-care (01) | DRG 389 ==
PROVIDERS: Admitting Provider Internal Medicine; PCP Internal Medicine; Visit Provider Internal Medicine
DX: K56.600 Partial intestinal obstruction, unspecified as to cause (principal); K43.0 Incisional hernia with obstruction, without gangrene; K58.0 Irritable bowel syndrome with diarrhea; I10 Essential (primary) hypertension; Z79.899 Other long term (current) drug therapy; Z85.038 Personal history of other malignant neoplasm of large intestine; Z85.42 Personal history of malignant neoplasm of other parts of uterus; Z90.49 Acquired absence of other specified parts of digestive tract; Z90.710 Acquired absence of both cervix and uterus; Z92.21 Personal history of antineoplastic chemotherapy; Z92.3 Personal history of irradiation
CPT/HCPCS: 36415; 74019; 80053; 83735; 85025

== ENCOUNTER 2021-05-11 07:23 | Outpatient (CLI) | payer OTHER, SELFPAY ==
--- NOTE | ~2021-05-11 | MM_ITS ---
EXAMINATION: MM screening [facility] HISTORY: Screening mammogram TECHNIQUE: Craniocaudal and mediolateral oblique 3-D tomosynthesis images were obtained and synthetic 2-D images were generated. CAD analysis was submitted and interpreted. COMPARISON: 02/27/2018, 09/27/2016, 02/15 BREAST PARENCHYMAL COMPOSITION: There are scattered areas of fibroglandular density. FINDINGS: There is no evidence of suspicious mass, calcification, or architectural distortion to sugg est malignancy in either breast. There has been no suspicious interval change. IMPRESSION: 1. No mammographic evidence of malignancy. 2. Recommend routine screening mammography in one year. BI-RADS Category 1: Negative Reviewed, dictated and finalized at location A.
== END 2021-05-11 07:24 | disposition home or self-care (01) ==
LOC: ANHIMG 07:25
PROVIDERS: PCP Internal Medicine; Visit Provider Internal Medicine
DX: Z12.31 Encounter for screening mammogram for malignant neoplasm of breast (principal)
CPT/HCPCS: 77063; 77067

== ENCOUNTER 2021-06-07 15:23 | Inpatient (IN) | payer OTHER, SELFPAY ==
[2021-06-05 15:38] VITALS: BMI 26.3
[2021-06-07] VITALS (12 sets, daily range): BP systolic 114–153; BP diastolic 49–69; PULSE 66–88; RESP 11–20; TEMP 36.1–36.3; O2SAT 95–100
[2021-06-07] MEDS: LACTATED RINGERS 1,000 ML 30 ML IV CONT ×2 (08:35→13:55)
[2021-06-07] MEDS: KETOROLAC 15 MG/ML VIAL (*BKC) IV PUSH (08:41)
[2021-06-07] MEDS: ACETAMINOPHEN 500 MG TABLET 1000 MG PO ×3 (08:41→23:57)
--- NOTE | 2021-06-07 08:48 | WPDANESEPPF ---
Anes - Initial Pre Proc Eval Procedure: Operation Date: 06/07/21 10:00 Proposed Procedures p Open Incisional Hernia Repair with Mesh, Possible Bilateral Component Separation - Jorge Turcios DO Date/Time: 06/07/21 08:48 Surgeon: Jorge Turcios DO Pre Op Diagnosis: incarcerated incisional hernia Patient Data Age: 60 Gender: F Height: 1.63 m Weight: 69.6 kg Last Vital Signs Temp 36.1 C L 06/07/21 08:12 Pulse 74 06/07/21 08:12 Resp 16 06/07/21 08:12 BP 137/68 06/07/21 08:12 Pulse Ox 100 06/07/21 08:12 Allergies Allergy/AdvReac Type Severity Reaction Status Date / Time codeine AdvReac Mild Nausea Verified 06/07/21 08:16 Home Medications Medication Instructions Recorded Confirmed Type cholecalciferol (vitamin D3) 50 2,000 mcg PO DAILY 12/28/20 06/07/21 History mcg (2,000 unit) capsule lisinopril 10 0.5 tablet PO DAILY 12/28/20 06/07/21 History mg-hydrochlorothiazide 12.5 mg tablet multivitamin 1 tablet PO DAILY 04/29/21 06/07/21 History aspirin [Adult Aspirin] 81 mg PO DAILY 06/05/21 06/07/21 History Patient hx anesthesia problems: none Family hx anesthesia problems: none PMFSH Past Medical History Medical History Colon cancer Defecation urgency Diarrhea Endometrial cancer Hypertension Irritable bowel syndrome with diarrhea Surgical History Surgical History History of bladder surgery History of colon resection History of hysterectomy History of ureter repair Family History Family History Father Lung cancer Mother Carcinoma of colon Sibling Carcinoma of colon Sibling Carcinoma of colon Other Family history of lung disease Family history of malignant neoplasm Hypertension Social History Social History Smoking status: Never smoker Alcohol intake: never Drinks per week: 1 Alcohol use details: rarely once a month Substance use: never Substance use type: does not use Living arrangements: with family Spiritual care concerns: No Anes - Eval Final PreProcedure Day of Procedure 06/07/21 08:48 Patient weight: normal Heart: regular rate and rhythm Lungs: clear to auscultation Airway: Mallampati scale class II Neurological: alert and oriented Last oral intake: >/= 8 hours ASA classification: II Emergent: no Anesthetic plan: proceed Anesthesia type and monitoring: general ETT and standard monitoring Informed Consent: The patient's anesthetic plan and its attendant risks and benefits were discussed with the patient/family/POA. Questions were solicited and answers provided to the satisfaction of the patient/family/POA.
--- NOTE | 2021-06-07 09:33 | WPDHPUPDATE1 ---
History and Physical Update Update Date/Time: 06/07/21 09:33 History and Physical has been reviewed, including an updated exam of the patient. There are NO changes in the patient's condition. Risks, benefits, and alternatives have been discussed and questions answered. Patient agrees to proceed with procedure.
[2021-06-07] MEDS: ALVIMOPAN 12 MG CAPSULE PO (09:42)
[2021-06-07] MEDS: ceFAZolin 2 GM/D5W 50 ML 2 GM/50 ML BAG IVPB (09:56)
[2021-06-07] MEDS: BUPIVACAINE/EPINEPHRINE 0.5% 10 ML VIAL 50 ML INFILTRATE (13:22)
--- NOTE | 2021-06-07 13:53 | W.PM.PROC2 ---
Procedure Note - Detailed Date of Procedure 06/07/21 Pre-op Diagnosis incarcerated incisional hernia Post-op Diagnosis same Procedure Performed 1. Open retrorectus incarcerated incisional hernia repair with mesh 2. Right myofascial release (Transversus abdominis release) measuring 5cm Surgeon Jorge Turcios DO Managed Care Nurse Kelly Pandya NP Anesthesia general and local (0.5% Bupivicaine with epinephrine) Indications Sixto presents for hernia repair. She had a recent ER visit to [facility] and then transfer to for a partial small bowel obstruction. This resolved and she was discharged on 04/30/21. CT abd/pelvis w/ contrast was done at [place] on 04/29/21 and showed a mildly dilated small bowel bowel protruding into wide mouth infraumbilical hernia, without transition point. Probably ileus or possibly low-grade partial small bowel obstruction. She has a history of colon surgery in 1995, hysterectomy in 2010, another surgery for complications from hysterectomy in 2010, and a ureter repair in 2011. Findings incarcerated incisional hernia repair was performed. A lower abdominal hernia was identified and midline extending anterior to the patient's pubic bone. The hernia defect measured approximately 5 cm wide by 5 cm in vertical dimension. She had a significant amount of small bowel adhesions up to the lower abdominal wall and many of these adhesions had to be taken down in order to clearly identify the abdominal wall and hernia. A retro rectus repair was performed. A transversus abdominis release was performed on the right side and this allowed for approximately 5 cm of myofascial release to bring the fascia together in the midline without too much tension. A Prolene soft mesh was cut to approximately 15 cm wide by 25 cm vertically to fit within the retro rectus space. The posterior sheath was closed using 0 PDS running suture. The mesh was then placed within the retro rectus space and a 19 round Chente drain was placed within the retro rectus space is well. The anterior rectus fascia was then closed over the mesh using 0 PDS running suture starting from each end and meeting in the middle. No specimens were obtained for pathology. Description of Procedure Procedure as well as risks, benefits, and alternatives were discussed with the patient. Written consent was obtained and placed in chart prior to procedure. Patient was brought back to surgical suite. She was placed supine on operating table. Time-out was done to confirm patient and procedure. She was then intubated by the Anesthesia Department. Her abdomen was prepped and draped in sterile fashion using chlorhexidine prep. A 20 cm vertical midline incision was made from just superior to the umbilicus down to the suprapubic region using a 10 blade scalpel. Electrocautery was used for hemostasis and for dissection down through Pierre's fascia. The linea alba was identified and the hernia sac was also identified. The anterior fascia around the hernia sac was cleared for about 1 cm on each side using electrocautery. The hernia sac extended down into the mons pubis just superficial to the pubic arch. The hernia sac was carefully dissected free using electrocautery. Up near the umbilicus, the linea alba was incised with electrocautery and peritoneum was also incised with electrocautery. The abdominal cavity was entered and there were some loose adhesions that were able to be taken down using blunt dissection. A carefully extended the fascial incision throughout the length of the skin incision. The hernia sac was retained in order to use for posterior peritoneum and fascial closure. There were many small bowel adhesions that were carefully taken down using Metzenbaum scissors and electrocautery. These adhesions were involving small bowel up to the abdominal wall. Once all the small bowel was down from the abdominal wall I was able to adequately visualize the entire abdominal wall. I took martín
--- NOTE | 2021-06-07 14:52 | SUR.PHASEI ---
[id number] sbar faxed floor notified
--- NOTE | 2021-06-07 15:40 | ADMGEN ---
This patient, Sixto Gallardo, was admitted to Medical Room 255-01. Patient/family oriented to hospital policies and general routines including ID bracelet, bed and alarms, visiting hours, pain management, procedures, bathroom and other care routines, personal items, smoking policy, room service/diet, and visiting hours. Information on how to activate the Rapid Response Team has been discussed. Patient/Family are encouraged to report perceived risks to care and to ask questions if they do not understand what they are told or what they should do.
[2021-06-07] MEDS: LACTATED RINGERS 1,000 ML 100 ML IV CONT (15:59)
[2021-06-07 16:34] LABS: Mean Platelet Volume 10.9 fl (7.4-10.4); Platelet Count Result 181 k/mm3 (150-375)
[2021-06-07 16:47] LABS: Estimated CRCL calculation 64 ml/min; Estimated Glomerular Filt Rate > 60
[2021-06-07] MEDS: IBUPROFEN 600 MG TABLET PO ×2 (17:32→23:57)
[2021-06-07] MEDS: ENOXAPARIN 30 MG/0.3 ML SYRINGE SUB-Q (20:26)
[2021-06-07] MEDS: oxyCODONE HCL (*CRX) 5 MG TAB IR PO (21:40)
[2021-06-08] VITALS (7 sets, daily range): BP systolic 112–145; BP diastolic 52–66; PULSE 67–82; RESP 18–20; TEMP 36.1–36.6; O2SAT 94–100
[2021-06-08] MEDS: LACTATED RINGERS 1,000 ML 100 ML IV CONT (01:53)
[2021-06-08 05:44] LABS: Basophils Percent Auto 0.4 % (0.2-1.2); Eosinophils Percent Auto 0.1 % (0-4.4); Hematocrit 35.1 % (37.0-47.0); Hemoglobin 11.4 g/dL (12.0-15.0); Immature Granulocyte Absolute 0.03 K/mm3 (0.00-0.031); Immature Granulocyte Percent A 0.3 % (0-0.5); Lymphocytes Absolute Auto 1.16 K/mm3 (0.9-3.2); Lymphocytes Percent Auto 11.7 % (18.3-44.2); Mean Corpuscular HGB Conc 32.5 g/dl (32-36); Mean Corpuscular Hemoglobin 29.4 pg (26-34); Mean Corpuscular Volume 90.5 fl (80-100); Mean Platelet Volume 11.3 fl (7.4-10.4); Monocytes Percent Auto 10.3 % (2.6-8.5); Neutrophils Absolute Auto 7.6 K/mm3 (1.3-6.7); Neutrophils Percent Auto 77.2 % (45.5-73.1); Platelet Count Result 165 k/mm3 (150-375); Red Blood Count 3.88 M/mm3 (4.2-5.4); White Blood Count 9.9 K/mm3 (4.5-10.0)
[2021-06-08] MEDS: IBUPROFEN 600 MG TABLET PO ×3 (05:48→19:15)
[2021-06-08] MEDS: ACETAMINOPHEN 500 MG TABLET 1000 MG PO ×3 (05:48→19:15)
[2021-06-08 05:54] LABS: Anion Gap 1 mmol/L (8-16); Blood Urea Nitrogen 20 mg/dL (7-17); Calcium 8.6 mg/dL (8.4-10.2); Carbon Dioxide 29 mmol/L (22-30); Chloride 105 mmol/L (98-107); Estimated CRCL calculation 64 ml/min; Estimated Glomerular Filt Rate > 60; Glucose 110 mg/dL (65-105); Potassium 4.4 mmol/L (3.4-5.0); Sodium 135 mmol/L (137-145)
[2021-06-08] MEDS: ASPIRIN 81 MG ENTERIC TABLET PO (08:15)
[2021-06-08] MEDS: oxyCODONE HCL (*CRX) 5 MG TAB IR PO (08:15)
[2021-06-08] MEDS: ENOXAPARIN 30 MG/0.3 ML SYRINGE SUB-Q ×2 (10:11→20:47)
--- NOTE | 2021-06-08 10:34 | PM.PNGS ---
Progress Note: A&P Assessment and Plan (1) Incarcerated incisional hernia: Code(s): K43.0 - Incisional hernia with obstruction, without gangrene Status: Acute Assessment and Plan: Remove Magaña and stop IV fluids Increase activity Continue to monitor TERESA output Possibly home tomorrow if continuing to improve Subjective Subjective Date/Time Seen: 06/08/21 10:34 Interval history: Tolerating diet. Pain controlled. No nausea or vomiting. Exam GI: Inspection: non-distended and other (minimal bloody TERESA output) GI Palp: Yes Tenderness to palpation present (GI) (incisional) Auscultation: normal bowel sounds Objective Data Vital Signs Vital Signs: Vital Signs - 24 hr 06/07/21 14:00 06/07/21 14:15 06/07/21 14:30 Temperature 36.3 C L Pulse Rate 88 83 85 Respiratory Rate 13 11 L 14 Blood Pressure 153/68 H 146/69 H 134/61 Pulse Oximetry 100 100 100 06/07/21 14:45 06/07/21 15:00 06/07/21 15:30 Temperature 36.1 C L Pulse Rate 78 85 80 Respiratory Rate 11 L 12 16 Blood Pressure 117/56 L 114/49 L 125/54 L Pulse Oximetry 98 98 98 06/07/21 15:45 06/07/21 16:15 06/07/21 17:15 Temperature 36.3 C L 36.3 C L 36.1 C L Pulse Rate 66 71 66 Respiratory Rate 12 12 16 Blood Pressure 120/55 L 121/65 136/66 Pulse Oximetry 97 98 99 06/07/21 20:00 06/07/21 20:57 06/08/21 00:18 Temperature 36.1 C L 36.1 C L Pulse Rate 69 69 73 Respiratory Rate 20 20 20 Blood Pressure 124/58 L 134/66 Pulse Oximetry 95 95 96 06/08/21 05:02 06/08/21 06:00 06/08/21 10:19 Temperature 36.3 C L 36.3 C L Pulse Rate 67 67 Respiratory Rate 20 20 Blood Pressure 113/52 L 113/52 L Pulse Oximetry 94 94 95 Intake/Output Intake/Output: Intake & Output 06/05/21 06/06/21 06/07/21 06/08/21 23:59 23:59 23:59 23:59 Intake Total 500 1340 Output Total 265 1680 Balance 235 -340 Meds/Results Medications: Active Medications Generic Name Dose Route Start Last Admin Trade Name Freq PRN Reason Stop Dose Admin Acetaminophen 1,000 mg 06/07/21 18:00 06/08/21 05:48 Acetaminophen 500 Mg Tablet PO 1,000 mg Q6HR ABBEY Administration Alvimopan 12 mg 06/08/21 21:00 Alvimopan 12 Mg Capsule PO 06/15/21 21:01 Q12HR [facility] Aspirin 81 mg 06/08/21 09:00 06/08/21 08:15 Aspirin 81 Mg Enteric Tablet PO 07/08/21 09:01 81 mg DAILY [facility] Administration Enoxaparin Sodium 30 mg 06/07/21 21:00 06/08/21 10:11 Enoxaparin 30 Mg/0.3 Ml Syringe SUB-Q 30 mg Q12HR [facility] Administration Hydromorphone HCl 0.5 mg 06/07/21 15:23 Hydromorphone Hcl Inj (*Crx) 1 Mg/Ml Syr IV PUSH Q2H PRN Pain Rated 4-6 Ibuprofen 600 mg 06/07/21 18:00 06/08/21 05:48 Ibuprofen 600 Mg Tablet PO 600 mg Q6HR [facility] Administration Ondansetron HCl 4 mg 06/07/21 15:23 Ondansetron Inj 4 Mg/2 Ml Vial IV PUSH Q4H PRN Nausea And Vomiting Oxycodone HCl 5 mg 06/07/21 15:23 06/08/21 08:15 Oxycodone Hcl (*Crx) 5 Mg Tab Ir PO 5 mg Q4H PRN Administration Pain Rated 4-6 Oxycodone HCl 10 mg 06/07/21 15:23 Oxycodone Hcl (*Crx) 5 Mg Tab Ir PO Q4H PRN Pain Rated 7-10 Labs Labs: Laboratory Results - last 24 hr 06/07/21 06/07/21 06/08/21 16:23 16:23 05:32 WBC 9.9 RBC 3.88 L Hgb 11.4 L Hct 35.1 L MCV 90.5 MCH 29.4 MCHC 32.5 RDW 13.0 Plt Count 181 165 MPV 10.9 H 11.3 H Immature Gran % (Auto) 0.3 Neut % (Auto) 77.2 H Lymph % (Auto) 11.7 L Richardson % (Auto) 10.3 H Eos % (Auto) 0.1 Baso % (Auto) 0.4 Lymph # (Auto) 1.16 Richardson # (Auto) 1.0 H Eos # (Auto) 0.0 Baso # (Auto) 0.0 Abs Immat Gran (auto) 0.03 Absolute Neuts (auto) 7.6 H Absolute Nucleated RBC 0.0 Nucleated RBC % 0.0 Sodium Potassium Chloride Carbon Dioxide Anion Gap BUN Creatinine 0.70 Estim Creat Clear Calc 64 Estimated GFR > 60 Glucose Calcium 06/08/21 05:32 WBC RBC Hg
[2021-06-08] MEDS: ALVIMOPAN 12 MG CAPSULE PO (20:48)
[2021-06-08] MEDS: oxyCODONE HCL (*CRX) 5 MG TAB IR 10 MG PO (22:05)
[2021-06-09] MEDS: IBUPROFEN 600 MG TABLET PO (00:04)
[2021-06-09] MEDS: ACETAMINOPHEN 500 MG TABLET 1000 MG PO (00:04)
[2021-06-09 04:40] VITALS: BP 128/61; PULSE 71; RESP 20; TEMP 36.1; O2SAT 99
[2021-06-09] MEDS: ONDANSETRON INJ 4 MG/2 ML VIAL IV PUSH (05:34)
--- NOTE | 2021-06-09 06:15 | PC.NURSE ---
Pt c/o nausea Zofran given, will hold 0600 Tylenol and Ibuprofen and just use prn medication for pain. Pt very agreeable and states she feels this would be better.
[2021-06-09] MEDS: ENOXAPARIN 30 MG/0.3 ML SYRINGE SUB-Q ×2 (10:30→21:05)
[2021-06-09] MEDS: ALVIMOPAN 12 MG CAPSULE PO ×2 (10:30→21:05)
[2021-06-09] MEDS: ASPIRIN 81 MG ENTERIC TABLET PO (10:30)
[2021-06-09 14:00] VITALS: BP 141/65; PULSE 84; RESP 18; TEMP 36.7; O2SAT 97
--- NOTE | 2021-06-09 14:17 | P.PNGS_ITS ---
Progress Note: A&P Assessment and Plan (1) Incarcerated incisional hernia: Code(s): K43.0 - Incisional hernia with obstruction, without gangrene Status: Acute Assessment and Plan: * Continuing to progress, but since she was nauseated this AM, it will be safest to continue recovering in the hospital. Will repeat labs in AM. Encouraged increased activity. Monitor TERESA output, probably will remove tomorrow prior to discharge. Subjective Subjective Date/Time Seen: 06/09/21 14:17 Interval history: Had some nausea early this AM. She thought it might have been related to taking Ibuprofen on empty stomach at midnight, or other medication reaction. Otherwise tolerating diet. Bowels moving and passing flatus. Pain controlled. Exam GI: Inspection: non-distended, incision (clean/dry/intact) and other (TERESA serosanguinous) GI Palp: Yes Tenderness to palpation present (GI) (incisional) Auscultation: normal bowel sounds Objective Data Vital Signs Vital Signs: Vital Signs - 24 hr 06/08/21 20:00 06/08/21 20:35 06/09/21 04:40 Temperature 36.6 C 36.1 C L Pulse Rate 80 80 71 Respiratory Rate 20 20 20 Blood Pressure 145/66 H 128/61 Pulse Oximetry 100 100 99 Intake/Output Intake/Output: Intake & Output 06/06/21 06/07/21 06/08/21 06/09/21 23:59 23:59 23:59 23:59 Intake Total 500 3160 530 Output Total 265 2100 50 Balance 235 1060 480 Meds/Results Medications: Active Medications Generic Name Dose Route Start Last Admin Trade Name Fausto PRN Reason Stop Dose Admin Acetaminophen 1,000 mg 06/07/21 18:00 06/09/21 12:50 Acetaminophen 500 Mg Tablet PO Not Given Q6HR ABBEY Alvimopan 12 mg 06/08/21 21:00 06/09/21 10:30 Alvimopan 12 Mg Capsule PO 06/15/21 21:01 12 mg Q12HR ABBEY Administration Aspirin 81 mg 06/08/21 09:00 06/09/21 10:30 Aspirin 81 Mg Enteric Tablet PO 07/08/21 09:01 81 mg DAILY ABBEY Administration Enoxaparin Sodium 30 mg 06/07/21 21:00 06/09/21 10:30 Enoxaparin 30 Mg/0.3 Ml Syringe SUB-Q 30 mg Q12HR ABBEY Administration Hydromorphone HCl 0.5 mg 06/07/21 15:23 Hydromorphone Hcl Inj (*Crx) 1 Mg/Ml Syr IV PUSH Q2H PRN Pain Rated 4-6 Ibuprofen 600 mg 06/07/21 18:00 06/09/21 12:50 Ibuprofen 600 Mg Tablet PO Not Given Q6HR ABBEY Ondansetron HCl 4 mg 06/07/21 15:23 06/09/21 05:34 Ondansetron Inj 4 Mg/2 Ml Vial IV PUSH 4 mg Q4H PRN Administration Nausea And Vomiting Oxycodone HCl 5 mg 06/07/21 15:23 06/08/21 08:15 Oxycodone Hcl (*Crx) 5 Mg Tab Ir PO 5 mg Q4H PRN Administration Pain Rated 4-6 Oxycodone HCl 10 mg 06/07/21 15:23 06/08/21 22:05 Oxycodone Hcl (*Crx) 5 Mg Tab Ir PO 10 mg Q4H PRN Administration Pain Rated 7-10
[2021-06-09] MEDS: oxyCODONE HCL (*CRX) 5 MG TAB IR 10 MG PO (18:26)
[2021-06-09 22:18] VITALS: BP 139/63; PULSE 85; RESP 16; TEMP 36.9; O2SAT 99
[2021-06-09] MEDS: oxyCODONE HCL (*CRX) 5 MG TAB IR PO (23:54)
[2021-06-10] MEDS: ACETAMINOPHEN 500 MG TABLET 1000 MG PO (04:32)
[2021-06-10 05:49] VITALS: BP 140/72; PULSE 72; RESP 16; TEMP 37; O2SAT 97
[2021-06-10] MEDS: oxyCODONE HCL (*CRX) 5 MG TAB IR 10 MG PO (05:49)
[2021-06-10 06:35] LABS: Hematocrit 32.5 % (37.0-47.0); Hemoglobin 10.3 g/dL (12.0-15.0); Mean Corpuscular HGB Conc 31.7 g/dl (32-36); Mean Corpuscular Hemoglobin 29.3 pg (26-34); Mean Corpuscular Volume 92.6 fl (80-100); Mean Platelet Volume 11.3 fl (7.4-10.4); Platelet Count Result 172 k/mm3 (150-375); Red Blood Count 3.51 M/mm3 (4.2-5.4); Red Cell Distribution Width 13.2 % (11.5-14.5); White Blood Count 6.2 K/mm3 (4.5-10.0)
[2021-06-10 06:42] LABS: Anion Gap 3 mmol/L (8-16); Blood Urea Nitrogen 15 mg/dL (7-17); Calcium 8.5 mg/dL (8.4-10.2); Carbon Dioxide 30 mmol/L (22-30); Chloride 102 mmol/L (98-107); Estimated CRCL calculation 79 ml/min; Estimated Glomerular Filt Rate > 60; Glucose 97 mg/dL (65-110); Potassium 3.8 mmol/L (3.4-5.0); Sodium 135 mmol/L (137-145)
--- NOTE | 2021-06-10 07:55 | PM.DS ---
DS: Admitting Diagnosis Admitting Diagnosis Admitting Diagnosis: Incisional hernia DS: Discharge Diagnosis Discharge Diagnosis (1) Incarcerated incisional hernia: Code(s): K43.0 - Incisional hernia with obstruction, without gangrene Status: Acute DS: Summary Hospital Course Hospital Course: patient was admitted in early April with an incarcerated incisional hernia with partial small bowel obstruction. The hernia was able to be reduced. There was a wide-mouth ventral hernia. She was able to be discharged after that admission. She was then seen in the office and prepared for surgery. She was taken to the operating room on 06/07/2021 and open incisional hernia repair with mesh was performed. Right-sided transverse abdominis myofascial flap advancement was performed. Postoperatively, the patient did well. Her pain gradually improved and eventually was well controlled with oral analgesics. Bowel function returned slowly but returned with positive bowel movement and eating well. Patient's Aryan-Valle drain was removed on the day of discharge. She is discharged now, 06/10/2021 in good condition. Status at Discharge Functional status at discharge: independent ambulation Overall status at discharge: patient is progressing back to baseline Time Spent with Patient Time attestation: Total time spent providing and/or coordinating discharge services: Exam Const: General: comfortable and no acute distress; No confusion Orientation/consciousness: patient oriented x3 and No confusion GI: Inspection: non-distended, incision ( Dry, intact, healing well) and other ( serous fluid in TERESA drain) GI Palp: Yes Soft to palpation, Yes Tenderness to palpation present (GI) ( minimal tenderness, appropriate for postoperative condition), No Guarding due to palpation present (GI) and No Rebound tenderness present Auscultation: normal bowel sounds Extrem: General: no calf tenderness and no edema DS: Data Data Completed and Pending Labs on day of discharge: Labs from last 24 hours 06/10/21 06/10/21 05:38 05:38 WBC 6.2 RBC 3.51 L Hgb 10.3 L Hct 32.5 L MCV 92.6 MCH 29.3 MCHC 31.7 L RDW 13.2 Plt Count 172 MPV 11.3 H Sodium 135 L Potassium 3.8 Chloride 102 Carbon Dioxide 30 Anion Gap 3 L BUN 15 D Creatinine 0.70 Estim Creat Clear Calc 79 Estimated GFR > 60 Glucose 97 Calcium 8.5 Discharge Plan Discharge Attending physician on discharge: Jorge Turcios Discharging Clinician: Vincent Herrera Anticipated Discharge Date/Time: 06/10/21 10:00 Patient Disposition: Home, Self-Care Activity: may shower, no straining and as tolerated Diet: regular Wound Care Instructions: keep dressing dry, remove dressing to shower and change dressing daily Discharge Instructions: Ambulate 3-4 x per day and as tolerated. No lifting over 15-20lbs. May bathe or shower. Stairs are OK. May drive a car in 3 days. Remove any dressings before shower and replace after. Patient Instructions: Antibiotic Form Stand Alone Forms: General Discharge Information Follow-up/Referrals: Jorge Turcios DO [Physician] - 1 Week Discharge Medications: New oxycodone-acetaminophen [Percocet] 5-325 mg tablet 1 tablet PO Q4H PRN (Reason: pain) Qty: 20 RF: 0 ibuprofen 600 mg tablet 600 mg PO Q6H PRN (Reason: pain) Qty: 20 RF: 0 ondansetron 4 mg tablet,disintegrating 4 mg PO Q6H PRN (Reason: nausea and vomiting) Qty: 10 RF: 0 Continued multivitamin Tablet 1 tablet PO DAILY RF: 0 lisinopril-hydrochlorothiazide 10-12.5 mg tablet 0.5 tablet PO DAILY RF: 0 cholecalciferol (vitamin D3) 50 mcg (2,000 unit) capsule 2,000 mcg PO DAILY RF: 0 Adult Aspirin 81 mg Tablet 81 mg PO DAILY RF: 0 Date of admission: 06/07/21 15:23 Primary Care Provider: Margret Grace Admitting Provider: Jorge Turcios Attending physician o
[2021-06-10] MEDS: ASPIRIN 81 MG ENTERIC TABLET PO (08:51)
[2021-06-10] MEDS: ALVIMOPAN 12 MG CAPSULE PO (08:51)
== END 2021-06-10 10:06 | disposition home or self-care (01) | DRG 355 ==
LOC: ANH2MED 06-08 11:27
PROVIDERS: Admitting Provider Surgery; PCP Internal Medicine; Visit Provider Surgery
PROC: 0WQF0ZZ Repair Abdominal Wall, Open Approach (ICD-10-PCS; principal; 2021-06-07 10:00)
DX: K43.0 Incisional hernia with obstruction, without gangrene (principal); Z85.038 Personal history of other malignant neoplasm of large intestine; Z85.89 Personal history of malignant neoplasm of other organs and systems; K58.0 Irritable bowel syndrome with diarrhea; I10 Essential (primary) hypertension; Z90.710 Acquired absence of both cervix and uterus
CPT/HCPCS: 36415; 80048; 82565; 85025; 85027; 85049; A9270; C1781; J0690; J1100; J1170; J1650; J1885; J2250; J2405; J2704; J2710; J3010; J7120

== ENCOUNTER 2021-11-10 09:21 | Outpatient (CLI) | payer OTHER, SELFPAY ==
[2021-11-10 12:52] LABS: Hematocrit 40.1 % (37.0-47.0); Hemoglobin 12.7 g/dL (12.0-15.0); Mean Corpuscular HGB Conc 31.7 g/dl (32-36); Mean Corpuscular Hemoglobin 28.7 pg (26-34); Mean Corpuscular Volume 90.7 fl (80-100); Mean Platelet Volume 11.2 fl (7.4-10.4); Platelet Count Result 245 k/mm3 (150-375); Red Blood Count 4.42 M/mm3 (4.2-5.4); White Blood Count 5.5 K/mm3 (4.5-10.0)
[2021-11-10 16:49] LABS: Alanine Aminotransferase 17 U/L (4-35); Albumin Level 4.6 g/dL (3.5-5.1); Alkaline Phosphatase 73 U/L (38-126); Anion Gap 6 mmol/L (8-16); Aspartate Amino Transferase 27 U/L (14-36); Bilirubin,Total 0.5 mg/dL (0.2-1.3); Blood Urea Nitrogen 25 mg/dL (7-17); Calcium 9.2 mg/dL (8.4-10.2); Carbon Dioxide 26 mmol/L (22-30); Chloride 101 mmol/L (98-107); Cholesterol 242 mg/dL (0-200); Estimated Glomerular Filt Rate > 60; Glucose 125 mg/dL (65-110); HDL Direct 106 mg/dL; LDL Cholesterol Direct 93 mg/dL; Potassium 4.1 mmol/L (3.4-5.0); Sodium 133 mmol/L (137-145); Triglycerides 81 mg/dL (<150)
[2021-11-10 21:08] LABS: Free T4 Free Thyroxine 1.05 ng/mL (0.78-2.19)
[2021-11-14 23:08] LABS: Vitamin D 25 Hydroxy 42.2 ng/mL
== END 2021-11-10 09:22 | disposition home or self-care (01) ==
LOC: ANHLAB 09:42
PROVIDERS: PCP Internal Medicine; Visit Provider Internal Medicine
DX: Z00.00 Encounter for general adult medical examination without abnormal findings (principal); Z85.038 Personal history of other malignant neoplasm of large intestine; D64.9 Anemia, unspecified
CPT/HCPCS: 36415; 80053; 80061; 82306; 82378; 84439; 84443; 85027

== ENCOUNTER 2021-12-13 11:57 | Outpatient (CLI) | payer OTHER, SELFPAY ==
[2021-12-13 12:45] LABS: Immature Reticulocyte Fraction 3.8 % (3.0-15.9); Reticulocyte Hemoglobin Conten 33.6 pg (28.2-35.7); Reticulocyte Percent 1.12 % (0.7-4.3); Reticulocytes Absolute 0.05 B/L (32.2-175.7)
[2021-12-13 17:02] LABS: Iron 100 ug/dL (37-170)
[2021-12-13 17:17] LABS: Hemoglobin A1C 5.4 % (<5.7)
[2021-12-17 07:52] LABS: Red Blood Cell Folate 649 ng/mL RBC (>280)
== END 2021-12-13 11:58 | disposition home or self-care (01) ==
LOC: ANHLAB 11:59
PROVIDERS: PCP Internal Medicine; Visit Provider Internal Medicine Hematology & Oncology
DX: D64.9 Anemia, unspecified (principal); I10 Essential (primary) hypertension; Z85.038 Personal history of other malignant neoplasm of large intestine
CPT/HCPCS: 36415; 82607; 82728; 82747; 83036; 83540; 85046

== ENCOUNTER 2022-03-21 17:11 | Outpatient (CLI) | payer OTHER, SELFPAY ==
[2022-03-21 17:30] LABS: Add Urine Microscopic? YES; Appearance Urine Clear (Clear); Basophils Absolute Auto 0.03 K/mm3 (0.00-0.10); Basophils Percent Auto 0.5 % (0.0-1.0); Bilirubin Urine Negative (Negative); Blood Urine Negative (Negative); Color Urine Yellow (Yellow); Eosinophils Absolute Auto 0.15 K/mm3 (0.02-0.50); Eosinophils Percent Auto 2.7 % (1.0-6.0); Glucose Urine UA Negative (Negative); Hematocrit 39.8 % (35.0-49.0); Hemoglobin 11.8 g/dL (12.0-15.0); Immature Granulocyte Absolute 0.02 K/mm3 (0.00-0.00); Immature Granulocyte Percent A 0.4 % (0.0-0.0); Ketones Urine Trace (Negative); Leukocyte Esterase Ur 1+ (Negative); Lymphocytes Absolute Auto 1.42 K/mm3 (1.10-4.50); Lymphocytes Percent Auto 25.9 % (18.0-42.0); Mean Corpuscular HGB Conc 29.6 g/dL (32.0-36.0); Mean Corpuscular Hemoglobin 29.5 pg (27.0-31.0); Mean Corpuscular Volume 99.5 fL (78.0-102.0); Mean Platelet Volume 10.5 fl (9.2-11.8); Monocytes Absolute Auto 0.73 K/mm3 (0.10-0.90); Monocytes Percent Auto 13.3 % (2.0-11.0); Neutrophils Absolute Auto 3.1 K/mm3 (1.7-7.2); Neutrophils Percent Auto 57.2 % (50.0-70.0); Nitrate Urine Negative (Negative); Platelet Count Result 212 K/mm3 (150-420); Protein Urine Negative (Negative); Specific Grav Ur 1.025 (1.010-1.020); Urobilinogen Urine 0.2 mg/dL (0.2-1.0); White Blood Count 5.5 K/mm3 (4.8-10.8)
[2022-03-21 17:36] LABS: Bacteria Urine 1+ /hpf; RBC Urine None seen /hpf (0-2); Squamous Epithelial Cell Urine Few /hpf (Few)
[2022-03-21 17:45] LABS: Alanine Aminotransferase 21 U/L (14-59); Albumin Level 3.4 g/dL (3.4-5.0); Alkaline Phosphatase 76 U/L (46-116); Anion Gap 6 mmol/L (8-16); Aspartate Amino Transferase 14 U/L (15-37); Bilirubin,Total 0.4 mg/dL (0.00-1.00); Blood Urea Nitrogen 26 mg/dL (7-18); Calcium 8.8 mg/dL (8.5-10.1); Carbon Dioxide 30 mmol/L (21-32); Chloride 104 mmol/L (98-108); Estimated Glomerular Filt Rate > 60; Glucose 98 mg/dL (70-99); Osmolality Calculated 294 mOsm/kg (285-295); Potassium 3.7 mmol/L (3.5-5.1); Sodium 140 mmol/L (136-145); Total Protein 6.7 g/dL (6.4-8.2)
== END 2022-03-21 17:12 | disposition home or self-care (01) ==
PROVIDERS: PCP Internal Medicine; Visit Provider Internal Medicine
DX: L03.116 Cellulitis of left lower limb (principal); R60.0 Localized edema
CPT/HCPCS: 36415; 80053; 81001; 85025; 87077; 87086; 87088

== ENCOUNTER 2022-03-22 12:47 | Outpatient (CLI) | payer OTHER, SELFPAY ==
--- NOTE | ~2022-03-22 | US_ITS ---
EXAMINATION: US venous doppler [facility] DATE: 03/22/2022 13:11 INDICATION: Cellulitis at the left lower limb TECHNIQUE: Grayscale ultrasound images without and with compression and Doppler ultrasound images of the left lower extremity veins were obtained. COMPARISON: None. FINDINGS: The visualized portions of left common femoral vein, profunda (deep) femoral vein, femoral vein, popl iteal vein, peroneal veins, posterior tibial veins, gastrocnemius vein and greater saphenous vein out flow are patent. IMPRESSION: 1. No deep venous thrombosis in the left lower limb. Reviewed, dictated and finalized at location B.
== END 2022-03-22 12:48 | disposition home or self-care (01) ==
LOC: CHSIMG 12:49
PROVIDERS: PCP Internal Medicine; Visit Provider Internal Medicine
DX: L03.116 Cellulitis of left lower limb (principal); I89.0 Lymphedema, not elsewhere classified
CPT/HCPCS: 93971

== ENCOUNTER 2022-12-05 12:40 | Emergency (ER) | payer OTHER, SELFPAY ==
--- NOTE | ~2022-12-05 | XR_ITS ---
EXAMINATION: XR knee LT min 4V DATE: 12/05/2022 13:04 INDICATION: Left knee pain TECHNIQUE: Four views of the left knee were obtained. COMPARISON: None. FINDINGS: Alignment is normal. No fracture or osteochondral lesion. Joint spaces are normal with no e rosions. No joint effusion/synovitis. There is mild infrapatellar soft tissue swelling of the knee. IMPRESSION: 1. No acute osseous abnormality. Reviewed, dictated and finalized at location B. D SPEC
[2022-12-05 12:48] VITALS: BP 148/82; PULSE 81; RESP 16; TEMP 36.6; O2SAT 100
--- NOTE | 2022-12-05 12:52 | ED.LOWEXIN ---
HPI - Extremity Injury (Lower) General Chief Complaint: Extremity Injury, Lower Stated Complaint: L LEG INJURY Time Seen by Provider: 12/05/22 12:52 Source: patient, RN notes reviewed and old records reviewed Mode of arrival: ambulatory Limitations: no limitations History of Present Illness HPI Narrative: 62-year-old female presents to [facility] with complaints of injury to her left knee last night after falling directly on anterior knee while walking her dog and onto right dorsal hand along 3rd,4th and 5th finger with some bruising noted to 4th finger. Patient has noted abrasions to right hand and anterior aspect of her left knee. Patient states that pain is worse when bending her knee and does feel better when it is extended. Patient reports history of lymph edema of her left leg but some noted swelling of left knee noted.Full ROM of left knee and right hand and fingers. Patient denies hitting her head when she fell or any LOC. MD complaint: knee injury Onset (ago): day(s) (occurred last night at 1730) Place: street/outdoors Severity scale (1-10): 2 Treatments prior to arrival: other (tylenol and elevation) Related Data Home Medications Medication Instructions Recorded Confirmed cholecalciferol (vitamin D3) 50 2,000 mcg PO DAILY 12/28/20 12/05/22 mcg (2,000 unit) capsule multivitamin 1 tablet PO DAILY 04/29/21 12/05/22 aspirin 81 mg tablet 81 mg PO DAILY 06/05/21 12/05/22 Allergies Allergy/AdvReac Type Severity Reaction Status Date / Time codeine AdvReac Mild Nausea Verified 12/05/22 12:55 Review of Systems Review of Systems: CONSTITUTIONAL: Denies fever, chills, or sweats. EYES: Denies visual changes, redness, or discharge. ENT: Denies rhinorrhea, congestion, sore throat, or otalgia. CARDIOVASCULAR: Denies chest pain, palpitations, or edema. RESPIRATORY: Denies cough or dyspnea. GASTROINTESTINAL: Denies abdominal pain, nausea, vomiting, or diarrhea. GENITOURINARY: Denies dysuria or hematuria. SKIN: Denies rash or itching.abrasions noted to anterior left knee and dorsal aspect of right hand along 3rd,4th and 5th fingers with bruising to mid aspect of 4th finger. MUSCULOSKELETAL: Denies back pain, positive for pain to the posterior aspect of left knee especially when bending NEUROLOGIC: Denies headache, numbness, or weakness. PSYCHIATRIC: Denies anxiety or depression. All systems reviewed & are unremarkable except as noted in HPI and below PMFSH Past Medical History Medical History Colon cancer Defecation urgency Diarrhea Endometrial cancer Hypertension Irritable bowel syndrome with diarrhea Surgical History Surgical History History of bladder surgery History of colon resection History of hysterectomy History of incisional hernia repair Open retrorectus incarcerated incisional hernia repair with mesh 2. Right myofascial release (Transversus abdominis release) measuring 5cm History of ureter repair Family History Family History Father Lung cancer Family history of lung disease Hypertension Aortic aneurysm, abdominal Afib Mother Carcinoma of colon Hypertension Mitral valve replaced Sibling Carcinoma of colon Hypertension Sibling Carcinoma of colon Other Family history of malignant neoplasm Social History Social History Smoking status: Never smoker Alcohol intake: never Drinks per week: 1 Alcohol use details: rarely once a month Substance use: never Substance use type: does not use Spiritual care concerns: No Comments At time of signature, agree with nursing past medical, surgical, social and family history. There is no relevant family history pertinent to the presenting complaint Exam Narrative: GENERAL: Well-appearing, well-nourished,
[2022-12-05 12:55] VITALS: BP 148/82; PULSE 81; RESP 16; TEMP 36.6; O2SAT 100
--- NOTE | 2022-12-05 13:24 | PC.NURSE ---
PT HAD MINOR ABRASIONS NOTED TO RT INDEX AND RING FINGERS AND BRUISING NOTED TO RT INDEX FINGER.
== END 2022-12-05 13:20 | disposition home or self-care (01) ==
PROVIDERS: Emergency Provider Registered Nurse; PCP Internal Medicine
DX: S80.02XA Contusion of left knee, initial encounter (principal); W19.XXXA Unspecified fall, initial encounter; Y93.K1 Activity, walking an animal; S60.412A Abrasion of right middle finger, initial encounter; S60.414A Abrasion of right ring finger, initial encounter; S60.416A Abrasion of right little finger, initial encounter; I10 Essential (primary) hypertension; Z85.038 Personal history of other malignant neoplasm of large intestine; Z85.42 Personal history of malignant neoplasm of other parts of uterus; Z79.82 Long term (current) use of aspirin
CPT/HCPCS: 73564; 99213; G0463

== ENCOUNTER 2023-03-08 09:07 | Outpatient (CLI) | payer OTHER, SELFPAY ==
[2023-03-08 09:36] LABS: Hematocrit 40.3 % (37.0-47.0); Mean Corpuscular HGB Conc 32.3 g/dl (32-36); Mean Corpuscular Hemoglobin 29.5 pg (26-34); Mean Corpuscular Volume 91.6 fl (80-100); Mean Platelet Volume 10.4 fl (7.4-10.4); Platelet Count Result 254 k/mm3 (150-375); Red Cell Distribution Width 12.9 % (11.5-14.5); White Blood Count 5.2 K/mm3 (4.5-10.0)
[2023-03-08 11:08] LABS: Iron 84 ug/dL (37-170)
[2023-03-08 11:13] LABS: Alanine Aminotransferase 25 U/L (6-35); Albumin Level 4.6 g/dL (3.5-5.1); Alkaline Phosphatase 71 U/L (38-126); Anion Gap 7 mmol/L (8-16); Aspartate Amino Transferase 26 U/L (14-36); Bilirubin,Total 0.6 mg/dL (0.2-1.3); Blood Urea Nitrogen 32 mg/dL (7-17); CRP < 0.5 mg/dL (<1.0); Carbon Dioxide 29 mmol/L (22-30); Chloride 101 mmol/L (98-107); Cholesterol 213 mg/dL (0-200); Estimated Glomerular Filt Rate > 60; Glucose 102 mg/dL (65-110); HDL Direct 90 mg/dL; Potassium 4.8 mmol/L (3.4-5.0); Sodium 137 mmol/L (137-145); Triglycerides 88 mg/dL (<150)
[2023-03-08 11:14] LABS: INR 0.9; Partial Thromboplastin Time 25.1 SECONDS (22.3-36.8)
[2023-03-08 11:15] LABS: Rheumatoid Factor < 8.6 IU/ML (<12)
[2023-03-08 11:18] LABS: Percent Iron Saturation 26 % (20-50)
[2023-03-08 11:22] LABS: LDL Cholesterol Direct 80 mg/dL
[2023-03-08 11:27] LABS: Free T4 Free Thyroxine 1.09 ng/mL (0.78-2.19)
[2023-03-08 11:42] LABS: Carcinoembryonic Antigen 2.2 ng/mL (0.0-3.0)
[2023-03-08 11:46] LABS: Erythrocyte Sedimentation Rate 11 mm/hr (0-20)
[2023-03-12 12:15] LABS: Cyclic Citrullinated Peptide <16 Units (<20)
[2023-03-12 16:36] LABS: Red Blood Cell Folate 737 ng/mL RBC (>280)
[2023-03-13 04:43] LABS: Triiodothyronine T3 Free 3.2 pg/mL (2.3-4.2)
== END 2023-03-08 09:08 | disposition home or self-care (01) ==
LOC: ANHLAB 09:09
PROVIDERS: PCP Internal Medicine; Visit Provider Internal Medicine
DX: I10 Essential (primary) hypertension (principal); M65.4 Radial styloid tenosynovitis [de Quervain]; D64.9 Anemia, unspecified; Z85.038 Personal history of other malignant neoplasm of large intestine
CPT/HCPCS: 36415; 80053; 80061; 82378; 82607; 82728; 82747; 83540; 83550; 84439; 84443; 84481; 85027; 85610; 85652; 85730; 86140; 86430

== ENCOUNTER 2024-01-02 07:29 | Outpatient (CLI) | payer OTHER, SELFPAY ==
--- NOTE | ~2024-01-02 | MM_ITS ---
EXAMINATION: MM screening cory BI w shereen HISTORY: Screening mammogram TECHNIQUE: Craniocaudal and mediolateral oblique 3-D tomosynthesis images were obtained and synthetic 2-D images were generated. CAD analysis was submitted and interpreted. COMPARISON: 05/11/2021, 02/27/2018 bilateral screening mammogram examinations BREAST PARENCHYMAL COMPOSITION: There are scattered areas of fibroglandular density. FINDINGS: There is no evidence of suspicious mass, calcification, or architectural distortion to sugg est malignancy in either breast. There has been no suspicious interval change. IMPRESSION: 1. No mammographic evidence of malignancy. 2. Recommend routine screening mammography in one year. BI-RADS Category 1: Negative Reviewed, dictated and finalized at location A. STEAMER
== END 2024-01-02 07:30 | disposition home or self-care (01) ==
LOC: CHSIMG 07:31
PROVIDERS: PCP Internal Medicine; Visit Provider Internal Medicine
DX: Z12.31 Encounter for screening mammogram for malignant neoplasm of breast (principal)
CPT/HCPCS: 77063; 77067

== ENCOUNTER 2024-01-30 08:33 | Outpatient (CLI) | payer OTHER, SELFPAY ==
[2024-01-30 09:00] LABS: Basophils Absolute Auto 0.1 K/mm3 (0.0-0.1); Basophils Percent Auto 1.2 % (0.2-1.2); Eosinophils Absolute Auto 0.2 K/mm3 (0-0.3); Hematocrit 39.9 % (37.0-47.0); Lymphocytes Absolute Auto 1.23 K/mm3 (0.9-3.2); Lymphocytes Percent Auto 28.7 % (18.3-44.2); Mean Corpuscular HGB Conc 32.6 g/dl (32-36); Mean Corpuscular Hemoglobin 29.6 pg (26-34); Mean Corpuscular Volume 90.9 fl (80-100); Mean Platelet Volume 10.3 fl (7.4-10.4); Monocytes Absolute Auto 0.5 K/mm3 (0.1-0.6); Monocytes Percent Auto 10.5 % (2.6-8.5); Neutrophils Absolute Auto 2.4 K/mm3 (1.3-6.7); Neutrophils Percent Auto 55.6 % (45.5-73.1); Platelet Count Result 282 k/mm3 (150-375); Red Blood Count 4.39 M/mm3 (4.2-5.4); Red Cell Distribution Width 12.8 % (11.5-14.5); White Blood Count 4.3 K/mm3 (4.5-10.0)
[2024-01-30 09:42] LABS: Alanine Aminotransferase 18 U/L (6-35); Albumin Level 4.4 g/dL (3.5-5.1); Alkaline Phosphatase 67 U/L (38-126); Anion Gap 4 mmol/L (8-16); Aspartate Amino Transferase 25 U/L (14-36); Bilirubin,Total 0.5 mg/dL (0.2-1.3); Blood Urea Nitrogen 26 mg/dL (7-17); Calcium 9.5 mg/dL (8.4-10.2); Carbon Dioxide 30 mmol/L (22-30); Chloride 103 mmol/L (98-107); Cholesterol 215 mg/dL (0-200); Estimated Glomerular Filt Rate > 60; Glucose 101 mg/dL (65-110); HDL Direct 96 mg/dL; Potassium 4.1 mmol/L (3.4-5.0); Sodium 137 mmol/L (137-145); Triglycerides 84 mg/dL (<150)
[2024-01-30 09:53] LABS: LDL Cholesterol Direct 95 mg/dL
[2024-01-30 10:10] LABS: Carcinoembryonic Antigen 1.9 ng/mL (0.0-3.0)
== END 2024-01-30 08:34 | disposition home or self-care (01) ==
PROVIDERS: PCP Emergency Medicine; Visit Provider Internal Medicine Hematology & Oncology
DX: C18.9 Malignant neoplasm of colon, unspecified (principal); I10 Essential (primary) hypertension; Z92.3 Personal history of irradiation; Z80.0 Family history of malignant neoplasm of digestive organs
CPT/HCPCS: 36415; 80053; 80061; 82378; 84443; 85025

== ENCOUNTER 2024-08-07 13:05 | Outpatient (CLI) | payer OTHER, SELFPAY ==
--- NOTE | ~2024-08-07 | XR_ITS ---
[id number] Ordering provider: Tariq Beckford APRN History: . M25.561 - Pain in right knee . Comparison: None. FINDINGS: BONES: No acute fracture or dislocation. JOINT SPACES: Normal. SOFT TISSUES: Normal. IMPRESSION: No acute osseous abnormality right knee. Reviewed, dictated and finalized at location A.
--- NOTE | ~2024-08-07 | XR_ITS ---
3 VIEWS LUMBAR SPINE Ordering provider: Tariq Beckford APRN History: . M51.37 - Other intervertebral disc degeneration, lumbosac... . Comparison: September 21, 2016 FINDINGS: VERTEBRAL BODIES:Transitional vertebra is noted. No visible fracture or subluxation. DISK SPACES: Narrowing of the disc L5-S1.. Facet joint disease at the level of L4-L5. SOFT TISSUES: Normal. Postoperative changes are seen in the paraspinal and pelvic areas. IMPRESSION: No acute osseous abnormality lumbar spine. Reviewed, dictated and finalized at location A.
== END 2024-08-07 13:06 | disposition home or self-care (01) ==
PROVIDERS: PCP Emergency Medicine; Visit Provider Student in an Organized Health Care Education/Training Program
DX: M25.561 Pain in right knee (principal); M51.37 Other intervertebral disc degeneration, lumbosacral region
CPT/HCPCS: 72100; 73560

== ENCOUNTER 2024-08-14 00:18 | Day surgery (SDC) | payer OTHER, SELFPAY ==
[2024-08-05 14:07] VITALS: BMI 27.1
[2024-08-14 11:17] VITALS: BP 139/83; PULSE 97; RESP 19; TEMP 36.4; O2SAT 99
[2024-08-14] MEDS: LACTATED RINGERS 1,000 ML 150 ML IV CONT (11:26)
--- NOTE | 2024-08-14 12:08 | WPDANESEPPF ---
Anes - Initial Pre Proc Eval Procedure: Operation Date: 08/14/24 14:30 Proposed Procedures p Colonoscopy - Gianni Garcia MD Date/Time: 08/14/24 12:08 Surgeon: Gianni Garcia MD Pre Op Diagnosis: hx of colon cancer Patient Data Age: 63 Gender: F Height: 1.63 m Weight: 73 kg Last Vital Signs Temp 36.4 C 08/14/24 11:17 Pulse 97 08/14/24 11:17 Resp 19 08/14/24 11:17 BP 139/83 08/14/24 11:17 Pulse Ox 99 08/14/24 11:17 O2 Del Method Room Air 08/14/24 11:17 Allergies Allergy/AdvReac Type Severity Reaction Status Date / Time codeine AdvReac Mild Nausea Verified 08/14/24 11:15 Home Medications Medication Instructions Recorded Confirmed Type cholecalciferol (vitamin D3) 50 2,000 mcg PO DAILY 12/28/20 08/14/24 History mcg (2,000 unit) capsule multivitamin 1 tablet PO DAILY 04/29/21 08/14/24 History diphenoxylate-atropine 2.5 1 tablet PO QID PRN diarrhea #90 01/23/24 08/14/24 Rx mg-0.025 mg tablet (Lomotil) tabs loperamide 2 mg capsule 2 mg PO Q6H PRN Diarrhea 01/23/24 08/14/24 History meloxicam 15 mg tablet 15 mg PO DAILY #90 tabs 01/23/24 08/14/24 Rx hydrochlorothiazide 25 mg tablet 25 mg PO DAILY #90 tabs 05/04/24 08/14/24 Rx Patient hx anesthesia problems: none Family hx anesthesia problems: none Results Review: All pre-operative results and documents have been reviewed as part of the pre-operative evaluation. FOR[facility]LY [facility], [facility] Past Medical History Medical History Colon cancer Defecation urgency Diarrhea Endometrial cancer Hypertension Irritable bowel syndrome with diarrhea Surgical History Surgical History History of bladder surgery History of colon resection History of hysterectomy History of incisional hernia repair Open retrorectus incarcerated incisional hernia repair with mesh 2. Right myofascial release (Transversus abdominis release) measuring 5cm History of ureter repair Family History Family History Father Lung cancer Family history of lung disease Hypertension Aortic aneurysm, abdominal Afib Mother Carcinoma of colon Hypertension Mitral valve replaced Sibling Carcinoma of colon Hypertension Sibling Carcinoma of colon Other Family history of malignant neoplasm Social History Social History Smoking status: Never smoker Alcohol intake: current Drinks per week: 1 Alcohol use details: rarely once a month Substance use: never Substance use type: does not use Living arrangements: with family Spiritual care concerns: No Anes - Eval Final PreProcedure Day of Procedure 08/14/24 12:08 Patient weight: normal Heart: regular rate and rhythm Lungs: clear to auscultation Airway: Mallampati scale class II Neurological: alert and oriented Last oral intake: >/= 8 hours ASA classification: II Emergent: no Anesthetic plan: proceed Anesthesia type and monitoring: general GIVS and standard monitoring Results Review: All pre-operative results and documents have been reviewed as part of the pre-operative evaluation. Informed Consent: The patient's anesthetic plan and its attendant risks and benefits were discussed with the patient/family/POA. Questions were solicited and answers provided to the satisfaction of the patient/family/POA.
--- NOTE | 2024-08-14 12:14 | PM.HPGS ---
History of Present Illness History of Present Illness Consent: Risks, benefits, and alternatives have been discussed and questions answered. Patient agrees to proceed with procedure. Chief complaint: hx of colon cancer Narrative: Sixto Gallardo is a 63 year old female she had colorectal cancer in 1995 treated with surgery, XRT and chemo then in early had endometrial cancer treated with total hysterectomy, complicated with ureteral disruption and required another surgery. Her mother, brother and sister have been diagnosed with colon cancer and both siblings tested for Mckenzie syndrome, last colonoscopy 2020 and getting every 3 years. Review of Systems Review of Systems: All systems reviewed & are unremarkable except as noted in HPI and below PMFSH Past Medical History Medical History Colon cancer Defecation urgency Diarrhea Endometrial cancer Hypertension Irritable bowel syndrome with diarrhea Surgical History Surgical History History of bladder surgery History of colon resection History of hysterectomy History of incisional hernia repair Open retrorectus incarcerated incisional hernia repair with mesh 2. Right myofascial release (Transversus abdominis release) measuring 5cm History of ureter repair Family History Family History Father Lung cancer Family history of lung disease Hypertension Aortic aneurysm, abdominal Afib Mother Carcinoma of colon Hypertension Mitral valve replaced Sibling Carcinoma of colon Hypertension Sibling Carcinoma of colon Other Family history of malignant neoplasm Social History Social History Smoking status: Never smoker Alcohol intake: current Drinks per week: 1 Alcohol use details: rarely once a month Substance use: never Substance use type: does not use Living arrangements: with family Spiritual care concerns: No Meds Home Medications and Allergies Home Medications Medication Instructions Recorded Confirmed Type cholecalciferol (vitamin D3) 50 2,000 mcg PO DAILY 12/28/20 08/14/24 History mcg (2,000 unit) capsule multivitamin 1 tablet PO DAILY 04/29/21 08/14/24 History diphenoxylate-atropine 2.5 1 tablet PO QID PRN diarrhea #90 01/23/24 08/14/24 Rx mg-0.025 mg tablet (Lomotil) tabs loperamide 2 mg capsule 2 mg PO Q6H PRN Diarrhea 01/23/24 08/14/24 History meloxicam 15 mg tablet 15 mg PO DAILY #90 tabs 01/23/24 08/14/24 Rx hydrochlorothiazide 25 mg tablet 25 mg PO DAILY #90 tabs 05/04/24 08/14/24 Rx Allergies Allergy/AdvReac Type Severity Reaction Status Date / Time codeine AdvReac Mild Nausea Verified 08/14/24 11:15 Vital Signs Vital Signs - 24 hr 08/14/24 11:17 Temperature 97.6 F Pulse Rate 97 Respiratory Rate 19 Blood Pressure 139/83 Pulse Oximetry 99 Oxygen Delivery Room Air Exam Const: General: comfortable and no acute distress HENMT: Face/Nose/Sinus: Normal nares present Eyes: General: appearance normal, both eyes and all related structures Neck: Neck: no JVD Resp: Auscultation: clear to auscultation bilaterally Cardio: Rate: regular rate Rhythm: regular rhythm GI: Inspection: non-distended GI Palp: Yes Soft to palpation Skin: General skin exam: normal color Neuro: General: gait normal Speech: normal speech Extrem: General: normal to inspection Psych: Mental Status: mental status grossly normal Assessment and Plan Assessment and plan (1) Colon cancer: Code(s): C18.9 - Malignant neoplasm of colon, unspecified Status: Acute Assessment and Plan: colonoscopy
[2024-08-14 12:28] VITALS: BP 124/65; PULSE 64; RESP 18; O2SAT 100
[2024-08-14 12:38] VITALS: BP 143/62; PULSE 67; RESP 18; O2SAT 100
[2024-08-14 12:48] VITALS: BP 152/63; PULSE 62; RESP 18; O2SAT 100
== END 2024-08-14 13:11 | disposition home or self-care (01) ==
PROVIDERS: PCP Emergency Medicine; Visit Provider Internal Medicine Gastroenterology
PROC: 0DJD8ZZ Inspection of Lower Intestinal Tract, Via Natural or Artificial Opening Endoscopic (ICD-10-PCS; CPT 45378; principal; 2024-08-14 14:30)
DX: Z12.11 Encounter for screening for malignant neoplasm of colon (principal); Z85.038 Personal history of other malignant neoplasm of large intestine; K63.89 Other specified diseases of intestine; Z85.42 Personal history of malignant neoplasm of other parts of uterus; Z90.710 Acquired absence of both cervix and uterus; Z80.0 Family history of malignant neoplasm of digestive organs; I10 Essential (primary) hypertension
CPT/HCPCS: 45378; J2704; J7120

== ENCOUNTER 2024-08-22 12:21 | Outpatient (CLI) | payer OTHER, SELFPAY ==
--- NOTE | ~2024-08-22 | MR_ITS ---
MRI of the lumbar spine Clinical History: Degenerative disc disease Technique: Axial T2-weighted images, and sagittal T1-weighted, T2-weighted, and and T2 fat-sat images were acquired. COMPARISON: 10/05/2016 Findings: There is no fracture or subluxation of the lumbar spine. Vertebral bodies maintain normal h eight and alignment. No suspicious bone marrow signal abnormality seen. At L1-L2, there is no disc bulge or herniation. There is moderate facet arthropathy. No central canal stenosis or neural foraminal narrowing. At L2-L3, there is no significant disc bulge or herniation. There is mild facet arthropathy. No centr al canal stenosis or neural foraminal narrowing. At L3-L4, there is no disc bulge or herniation. There is moderate facet arthropathy. No central canal stenosis or neural foraminal narrowing seen. At L4-L5, there is minimal disc bulge with moderate to advanced facet arthropathy. No central canal s tenosis or neural foraminal narrowing. At L5-S1, there is advanced degenerative disc narrowing. There is minimal disc bulge with moderate fa cet arthropathy. No central canal stenosis. There is mild bilateral neural foraminal narrowing. Paravertebral soft tissues are unremarkable. Impression: Mild degenerative spondylosis, as above. Reviewed, dictated and finalized at location . Impression: Mild degenerative spondylosis, as above.
== END 2024-08-22 12:22 | disposition home or self-care (01) ==
PROVIDERS: PCP Emergency Medicine; Visit Provider Student in an Organized Health Care Education/Training Program
DX: M51.37 Other intervertebral disc degeneration, lumbosacral region (principal); M47.896 Other spondylosis, lumbar region
CPT/HCPCS: 72148